=== PATIENT | male | born 1970 | race Caucasian/White ===

== ENCOUNTER 2018-02-05 09:09 | Inpatient (IN) | payer OTHER ==
[2018-02-05] MEDS ORDERED: HYDROmorphONE 1 MG/ML SYG IV (09:38)
[2018-02-05] MEDS: ONDANSETRON 4 MG INJ IV ×2 (10:09→21:36)
[2018-02-05] MEDS: SOD CHLORIDE 0.9% 1,000 ML IV ×4 (10:09→23:30)
[2018-02-05 10:13] LABS: ADD MAN DIFF? NO
[2018-02-05 10:15] LABS: BASOPHIL # 0.1 10^3/ul (0.0-0.1); BASOPHILS % 0.6 % (0.0-2.0); EOSINOPHILS # 0.1 10^3/ul (0.0-0.5); EOSINOPHILS % 0.8 % (0.0-7.0); LYMPHOCYTES # 1.1 10^3/ul (0.8-2.9); LYMPHOCYTES % 10.5 % (15.0-51.0); MEAN PLATELET VOLUME 9.4 fl (7.4-10.4); MONOCYTE # 0.5 10^3/ul (0.3-0.9); MONOCYTES % 4.7 % (0.0-11.0); NEUTROPHIL # 8.6 10^3/ul (1.6-7.5); PLATELET COUNT 157 10^3/UL (140-415); POSITIVE DIFF @See below; RED BLOOD COUNT 5.25 10^6/ul (4.70-6.10); RED CELL DISTRIBUTION WIDTH 12.6 % (11.5-14.5)
[2018-02-05 10:15] LABS: WHITE BLOOD COUNT 10.4 10^3/ul (4.8-10.8)
[2018-02-05 10:16] LABS: MEAN CORPUSCULAR HGB CONC 37.6 g/dl (32.0-37.0)
[2018-02-05 10:17] LABS: ADD UMIC NO; UR ASCORBIC ACID NEGATIVE (NEGATIVE); UR BILIRUBIN (Dip) NEGATIVE (NEGATIVE); UR BLOOD (Dip) NEGATIVE (NEGATIVE); UR CLARITY CLEAR (CLEAR); UR COLOR YELLOW (YELLOW); UR GLUCOSE (Dip) 3+ mg/dL (NEGATIVE); UR KETONES (Dip) TRACE mg/dL (NEGATIVE); UR LEUKOCYTE ESTERASE (Dip) NEGATIVE Leu/ul (NEGATIVE); UR NITRITE (Dip) NEGATIVE (NEGATIVE); UR SPECIFIC GRAVITY (Dip) 1.024 (1.003-1.030); UR TOTAL PROTEIN (Dip) NEGATIVE (NEGATIVE); UR UROBILINOGEN (Dip) NEGATIVE (NEGATIVE)
[2018-02-05 10:33] LABS: ALANINE AMINOTRANSFERASE 39 IU/L (13-69); ALBUMIN 3.9 g/dl (3.3-4.9); ALKALINE PHOSPHATASE 90 IU/L (42-121); ANION GAP 18 (8-16); ASPARTATE AMINO TRANSFERASE 20 IU/L (15-46); BILIRUBIN,INDIRECT 0.9 mg/dl (0-1.1); BILIRUBIN,TOTAL 0.9 mg/dl (0.2-1.3); BLOOD UREA NITROGEN 7 mg/dl (7-20); CALCIUM 8.5 mg/dl (8.4-10.2); CARBON DIOXIDE 20 mmol/L (21-31); CHLORIDE 95 mmol/L (97-110); CREATININE 0.91 mg/dl (0.61-1.24); GLUCOSE 364 mg/dl (70-220); POTASSIUM 4.3 mmol/L (3.5-5.1); SODIUM 129 mmol/L (135-144); TOTAL PROTEIN 8.2 g/dl (6.1-8.1)
[2018-02-05] MEDS: ERTAPENEM SODIUM 1 GM in SOD CHLORIDE 0.9% 100 ML IVPB (10:34)
[2018-02-05] MEDS: HYDROmorphONE 0.5 MG/0.5 ML SYG IV (10:46)
[2018-02-05] MEDS: IOHEXOL 300MG/ML 150 ML BTL (11:09)
[2018-02-05] MEDS: SOD CHLORIDE 0.9% 100 ML (11:09)
[2018-02-05 12:39] LABS: LIPASE 160 U/L (23-300)
[2018-02-05 12:56] LABS: HEMOGLOBIN 14.6 g/dl (14.0-18.0)
[2018-02-05 12:57] LABS: HEMATOCRIT 40.7 % (42.0-52.0); MEAN CORPUSCULAR HEMOGLOBIN 35.9 pg (29.0-33.0); MEAN CORPUSCULAR VOLUME 81.2 fl (82.0-101.0)
[2018-02-05] MEDS ORDERED: SOD CHLORIDE 0.9% 1,000 ML IV (13:57)
[2018-02-05] MEDS ORDERED: ACETAMINOPHEN 325 MG TAB PO (14:00)
[2018-02-05] MEDS ORDERED: ONDANSETRON 4 MG INJ IV (14:00)
[2018-02-05] MEDS ORDERED: HYDROCODONE/APAP (5/325) TAB PO (15:30)
[2018-02-05] MEDS ORDERED: NACL 0.9% 3 ML SYG IV (15:30)
[2018-02-05 16:14] LABS: HEMOGLOBIN A1C 9.5 % (0-5.9)
[2018-02-05] MEDS: morphine 2 MG INJ IV ×3 (16:38→22:52)
[2018-02-05 16:41] LABS: C-REACTIVE PROTEIN 18.7 mg/dl (0.0-0.9)
[2018-02-05 17:01] LABS: CANNABINOIDS Negative (NEGATIVE)
[2018-02-05 17:02] LABS: ERYTHROCYTE SEDIMENTATION RATE 1 mm/Hr (0-15)
[2018-02-05 17:04] LABS: AMPHETAMINE/METHAMPHETAMINE Negative (NEGATIVE); BARBITURATES Negative (NEGATIVE); BENZODIAZEPINES Negative (NEGATIVE); COCAINE Negative (NEGATIVE); OPIATES Negative (NEGATIVE)
[2018-02-05] MEDS: PANTOPRAZOLE 40 MG INJ IV (17:20)
[2018-02-05] MEDS ORDERED: GLUCAGON 1 MG INJ IM (17:30)
[2018-02-05] MEDS ORDERED: GLUCOSE GEL 15 GRAM TUBE PO ×2 (17:30)
[2018-02-05] MEDS ORDERED: GLUCOSE GEL 15 GRAM TUBE BUCCAL (17:30)
[2018-02-05] MEDS ORDERED: DEXTROSE 50% 50 ML SYRINGE IV ×2 (17:30)
[2018-02-05] MEDS ORDERED: DIPHENHYDRAMINE 50 MG INJ IV (18:00)
[2018-02-05] MEDS: FAMOTIDINE 20 MG INJ IV (18:03)
[2018-02-05] MEDS: DIPHENHYDRAMINE 50 MG INJ IV (18:03)
[2018-02-05 18:11] LABS: SODIUM,URINE RANDOM 24 mmol/L (30-90)
[2018-02-05 18:30] LABS: OSMOLALITY,URINE 338 mOsm/kg (250-1200)
[2018-02-05] MEDS: INSULIN ASPART [NOVOLOG] 3 ML PEN SC ×3 (18:30→21:26)
[2018-02-05 18:40] LABS: OSMOLALITY 277 mOsm/kg (280-295)
[2018-02-05] MEDS: INSULIN GLARGINE [LANtus] 3 ML PEN SC (21:16)
[2018-02-05] MEDS: CIPROFLOXACIN 400MG/D5W 200 ML IVPB (21:20)
[2018-02-05] MEDS: metroNIDAZOLE 500 MG/NS (PMX) 100 ML IVPB (22:04)
[2018-02-06] MEDS: ACCU-CHEK XX (02:08)
[2018-02-06] MEDS: metroNIDAZOLE 500 MG/NS (PMX) 100 ML IVPB ×3 (05:07→23:11)
[2018-02-06] MEDS: SOD CHLORIDE 0.9% 1,000 ML IV ×3 (05:08→23:30)
[2018-02-06] MEDS: PANTOPRAZOLE 40 MG INJ IV ×2 (05:08→17:14)
[2018-02-06 06:38] LABS: ADD MAN DIFF? NO
[2018-02-06 07:02] LABS: INR 1.19; PROTIME 15.3 Sec (11.9-14.9); PT RATIO 1.2
[2018-02-06 07:03] LABS: PARTIAL THROMBOPLASTIN TIME 37.9 Sec (25.0-35.0)
[2018-02-06 07:11] LABS: PHOSPHORUS 2.9 mg/dl (2.5-4.9)
[2018-02-06 07:11] LABS: CHOL/HDL RATIO 15.4 RATIO; CHOLESTEROL 278 mg/dl (100-200); HDL CHOLESTEROL 18 mg/dl (27-67); MAGNESIUM 1.8 mg/dl (1.7-2.5)
[2018-02-06 07:12] LABS: ALANINE AMINOTRANSFERASE 25 IU/L (13-69); ALBUMIN 3.4 g/dl (3.3-4.9); ALBUMIN/GLOBULIN RATIO 0.91; ALKALINE PHOSPHATASE 59 IU/L (42-121); AMYLASE 65 U/L (11-123); ANION GAP 17 (8-16); ASPARTATE AMINO TRANSFERASE 39 IU/L (15-46); BILIRUBIN,INDIRECT 0.7 mg/dl (0-1.1); BILIRUBIN,TOTAL 0.7 mg/dl (0.2-1.3); BLOOD UREA NITROGEN 5 mg/dl (7-20); CARBON DIOXIDE 22 mmol/L (21-31); CHLORIDE 102 mmol/L (97-110); CREATININE 0.86 mg/dl (0.61-1.24); GLUCOSE 177 mg/dl (70-220); LIPASE 90 U/L (23-300); POTASSIUM 4.6 mmol/L (3.5-5.1); SODIUM 136 mmol/L (135-144); TOTAL PROTEIN 7.1 g/dl (6.1-8.1)
[2018-02-06 07:42] LABS: TRIGLYCERIDES > 1575 mg/dl (0-149)
[2018-02-06] MEDS: INSULIN ASPART [NOVOLOG] 3 ML PEN SC ×7 (08:14→20:54)
[2018-02-06] MEDS: CIPROFLOXACIN 400MG/D5W 200 ML IVPB ×2 (08:40→20:58)
[2018-02-06] MEDS: morphine 2 MG INJ IV ×2 (08:55→20:47)
[2018-02-06 10:29] LABS: BASOPHILS % 0.5 % (0.0-2.0); EOSINOPHILS # 0.2 10^3/ul (0.0-0.5); EOSINOPHILS % 2.8 % (0.0-7.0); HEMATOCRIT 37.7 % (42.0-52.0); HEMOGLOBIN 13.3 g/dl (14.0-18.0); LYMPHOCYTES # 1.1 10^3/ul (0.8-2.9); LYMPHOCYTES % 17.6 % (15.0-51.0); MEAN CORPUSCULAR HGB CONC 35.3 g/dl (32.0-37.0); MEAN CORPUSCULAR VOLUME 85.1 fl (82.0-101.0); MEAN PLATELET VOLUME 11.1 fl (7.4-10.4); MONOCYTE # 0.4 10^3/ul (0.3-0.9); MONOCYTES % 6.4 % (0.0-11.0); NEUTROPHIL # 4.5 10^3/ul (1.6-7.5); NEUTROPHILS % 72.4 % (39.0-77.0); PLATELET COUNT 156 10^3/UL (140-415); POSITIVE DIFF @See below; RED BLOOD COUNT 4.43 10^6/ul (4.70-6.10); RED CELL DISTRIBUTION WIDTH 13.3 % (11.5-14.5)
[2018-02-06 10:29] LABS: WHITE BLOOD COUNT 6.1 10^3/ul (4.8-10.8)
[2018-02-06] MEDS: FENOFIBRATE 145 MG TAB PO (12:38)
[2018-02-06] MEDS: INSULIN GLARGINE [LANtus] 3 ML PEN SC (20:57)
[2018-02-06] MEDS: GEMFIBROZIL 600 MG TAB PO (20:58)
[2018-02-06] MEDS: ATORVASTATIN 40 MG TAB PO (20:58)
[2018-02-07] MEDS: ACCU-CHEK XX (01:56)
[2018-02-07] MEDS: SOD CHLORIDE 0.9% 1,000 ML IV (05:00)
[2018-02-07] MEDS: metroNIDAZOLE 500 MG/NS (PMX) 100 ML IVPB ×3 (05:01→23:14)
[2018-02-07] MEDS: PANTOPRAZOLE 40 MG INJ IV ×2 (05:01→17:17)
[2018-02-07] MEDS: morphine 2 MG INJ IV ×2 (07:08→20:18)
[2018-02-07 07:16] LABS: ADD MAN DIFF? NO
[2018-02-07 07:18] LABS: BASOPHILS % 0.3 % (0.0-2.0); EOSINOPHILS # 0.2 10^3/ul (0.0-0.5); EOSINOPHILS % 3.7 % (0.0-7.0); HEMATOCRIT 38.4 % (42.0-52.0); LYMPHOCYTES % 17.4 % (15.0-51.0); MEAN CORPUSCULAR HEMOGLOBIN 28.7 pg (29.0-33.0); MEAN CORPUSCULAR HGB CONC 33.9 g/dl (32.0-37.0); MEAN CORPUSCULAR VOLUME 84.8 fl (82.0-101.0); MEAN PLATELET VOLUME 9.6 fl (7.4-10.4); MONOCYTE # 0.5 10^3/ul (0.3-0.9); MONOCYTES % 8.8 % (0.0-11.0); NEUTROPHIL # 4.2 10^3/ul (1.6-7.5); NEUTROPHILS % 69.3 % (39.0-77.0); PLATELET COUNT 167 10^3/UL (140-415); RED BLOOD COUNT 4.53 10^6/ul (4.70-6.10); RED CELL DISTRIBUTION WIDTH 12.9 % (11.5-14.5)
[2018-02-07] MEDS: INSULIN ASPART [NOVOLOG] 3 ML PEN SC ×7 (07:35→20:40)
[2018-02-07 07:48] LABS: PHOSPHORUS 3.7 mg/dl (2.5-4.9)
[2018-02-07 07:48] LABS: ALANINE AMINOTRANSFERASE 31 IU/L (13-69); ALBUMIN 3.5 g/dl (3.3-4.9); ALBUMIN/GLOBULIN RATIO 1.02; ALKALINE PHOSPHATASE 77 IU/L (42-121); ANION GAP 15 (8-16); ASPARTATE AMINO TRANSFERASE 17 IU/L (15-46); BILIRUBIN,INDIRECT 0.6 mg/dl (0-1.1); BILIRUBIN,TOTAL 0.6 mg/dl (0.2-1.3); BLOOD UREA NITROGEN 5 mg/dl (7-20); CALCIUM 8.8 mg/dl (8.4-10.2); CARBON DIOXIDE 24 mmol/L (21-31); CHLORIDE 104 mmol/L (97-110); GLUCOSE 179 mg/dl (70-220); POTASSIUM 4.1 mmol/L (3.5-5.1); SODIUM 139 mmol/L (135-144); TOTAL PROTEIN 6.9 g/dl (6.1-8.1)
[2018-02-07] MEDS: GEMFIBROZIL 600 MG TAB PO ×2 (08:31→20:18)
[2018-02-07] MEDS: CIPROFLOXACIN 400MG/D5W 200 ML IVPB ×2 (08:32→20:23)
[2018-02-07] MEDS: LIDOCAINE 2% (SDV) 5 ML INJ (13:18)
[2018-02-07] MEDS: PROPOFOL 20 ML ×2 (13:18→13:26)
[2018-02-07] MEDS: MIDAZOLAM 1 MG/ML 2 ML INJ (13:18)
[2018-02-07] MEDS ORDERED: DIPHENHYDRAMINE 50 MG INJ IV (13:30)
[2018-02-07] MEDS ORDERED: HYDROmorphONE (0.2 MG/ML) 10ML SYG IV (13:30)
[2018-02-07] MEDS ORDERED: ONDANSETRON 4 MG INJ IV (13:30)
[2018-02-07] MEDS ORDERED: PROCHLORPERAZINE 10 MG INJ IV (13:30)
[2018-02-07] MEDS ORDERED: MEPERIDINE 25 MG INJ IV (13:30)
[2018-02-07] MEDS ORDERED: BISACODYL (EC) 5 MG TAB PO (16:30)
[2018-02-07] MEDS: metFORMIN 500 MG TAB PO (17:17)
[2018-02-07] MEDS: ATORVASTATIN 40 MG TAB PO (20:18)
[2018-02-07] MEDS: DOCUSATE SODIUM 100 MG CAP PO (20:29)
[2018-02-07] MEDS: POLYETHYLENE GLYCOL 17 GM PACKET PO (20:39)
[2018-02-07] MEDS: INSULIN GLARGINE [LANtus] 3 ML PEN SC (20:41)
[2018-02-08] MEDS: ACCU-CHEK XX (02:00)
[2018-02-08] MEDS: metroNIDAZOLE 500 MG/NS (PMX) 100 ML IVPB (05:43)
[2018-02-08] MEDS: PANTOPRAZOLE 40 MG INJ IV (05:43)
[2018-02-08 06:05] LABS: ADD MAN DIFF? NO
[2018-02-08 06:07] LABS: BASOPHILS % 0.5 % (0.0-2.0); EOSINOPHILS # 0.2 10^3/ul (0.0-0.5); EOSINOPHILS % 3.6 % (0.0-7.0); HEMATOCRIT 38.6 % (42.0-52.0); HEMOGLOBIN 13.5 g/dl (14.0-18.0); LYMPHOCYTES # 1.1 10^3/ul (0.8-2.9); LYMPHOCYTES % 18.7 % (15.0-51.0); MEAN CORPUSCULAR HEMOGLOBIN 29.3 pg (29.0-33.0); MEAN CORPUSCULAR VOLUME 83.7 fl (82.0-101.0); MEAN PLATELET VOLUME 9.5 fl (7.4-10.4); MONOCYTE # 0.6 10^3/ul (0.3-0.9); MONOCYTES % 9.6 % (0.0-11.0); NEUTROPHIL # 3.9 10^3/ul (1.6-7.5); NEUTROPHILS % 66.9 % (39.0-77.0); PLATELET COUNT 195 10^3/UL (140-415); RED BLOOD COUNT 4.61 10^6/ul (4.70-6.10); RED CELL DISTRIBUTION WIDTH 12.9 % (11.5-14.5)
[2018-02-08 06:07] LABS: WHITE BLOOD COUNT 5.8 10^3/ul (4.8-10.8)
[2018-02-08 07:12] LABS: PHOSPHORUS 4.3 mg/dl (2.5-4.9)
[2018-02-08 07:12] LABS: MAGNESIUM 1.8 mg/dl (1.7-2.5)
[2018-02-08 07:13] LABS: ALANINE AMINOTRANSFERASE 28 IU/L (13-69); ALBUMIN 3.6 g/dl (3.3-4.9); ALBUMIN/GLOBULIN RATIO 1.05; ALKALINE PHOSPHATASE 83 IU/L (42-121); ANION GAP 16 (8-16); ASPARTATE AMINO TRANSFERASE 20 IU/L (15-46); BILIRUBIN,INDIRECT 0.4 mg/dl (0-1.1); BILIRUBIN,TOTAL 0.4 mg/dl (0.2-1.3); BLOOD UREA NITROGEN 5 mg/dl (7-20); CALCIUM 9.1 mg/dl (8.4-10.2); CARBON DIOXIDE 24 mmol/L (21-31); CHLORIDE 103 mmol/L (97-110); GLUCOSE 181 mg/dl (70-220); POTASSIUM 3.9 mmol/L (3.5-5.1); SODIUM 139 mmol/L (135-144)
[2018-02-08] MEDS: metFORMIN 500 MG TAB PO (08:59)
[2018-02-08] MEDS: POLYETHYLENE GLYCOL 17 GM PACKET PO (09:00)
[2018-02-08] MEDS: DOCUSATE SODIUM 100 MG CAP PO (09:00)
[2018-02-08] MEDS: GEMFIBROZIL 600 MG TAB PO (09:00)
[2018-02-08] MEDS: INSULIN ASPART [NOVOLOG] 3 ML PEN SC ×4 (09:02→11:37)
[2018-02-08] MEDS: CIPROFLOXACIN 400MG/D5W 200 ML IVPB (09:17)
== END 2018-02-08 13:30 | disposition home or self-care (01) | DRG 392 ==
LOC: PP2 02-06 02:33 → FTE 09:09 → MS3 13:58
PROC: 0DB98ZX Excision of Duodenum, Via Natural or Artificial Opening Endoscopic, Diagnostic (ICD-10-PCS; principal; 2018-02-07 12:30)
PROC: 0DB78ZX Excision of Stomach, Pylorus, Via Natural or Artificial Opening Endoscopic, Diagnostic (ICD-10-PCS; 2018-02-07 12:30)
PROC: 0DB68ZX Excision of Stomach, Via Natural or Artificial Opening Endoscopic, Diagnostic (ICD-10-PCS; 2018-02-07 12:30)
DX: K29.70 Gastritis, unspecified, without bleeding (principal); E87.1 Hypo-osmolality and hyponatremia; E11.9 Type 2 diabetes mellitus without complications; E66.9 Obesity, unspecified; Z68.29 Body mass index [BMI] 29.0-29.9, adult; K44.9 Diaphragmatic hernia without obstruction or gangrene; E78.5 Hyperlipidemia, unspecified
CPT/HCPCS: 36415; 74177; 80053; 80061; 80307; 81003; 82150; 82962; 83036; 83690; 83735; 83930; 83935; 84100; 84300; 84439; 84443; 85025; 85610; 85651; 85730; 86140; 87040; 88305; 88312; 96374; 96375; 99217; 99285-25; G0378

== ENCOUNTER 2018-03-13 09:58 | Emergency (ER) | payer OTHER ==
[2018-03-13] MEDS: ONDANSETRON 4 MG INJ IV (10:44)
[2018-03-13] MEDS: SOD CHLORIDE 0.9% 1,000 ML IV (10:45)
[2018-03-13 11:02] LABS: ADD MAN DIFF? NO
[2018-03-13 11:07] LABS: WHITE BLOOD COUNT 4.2 10^3/ul (4.8-10.8)
[2018-03-13 11:07] LABS: BASOPHILS % 0.7 % (0.0-2.0); EOSINOPHILS % 0.5 % (0.0-7.0); HEMATOCRIT 41.2 % (42.0-52.0); LYMPHOCYTES # 1.6 10^3/ul (0.8-2.9); LYMPHOCYTES % 37.3 % (15.0-51.0); MEAN CORPUSCULAR HEMOGLOBIN 28.7 pg (29.0-33.0); MEAN CORPUSCULAR HGB CONC 36.4 g/dl (32.0-37.0); MEAN CORPUSCULAR VOLUME 78.9 fl (82.0-101.0); MEAN PLATELET VOLUME 8.6 fl (7.4-10.4); MONOCYTE # 0.4 10^3/ul (0.3-0.9); MONOCYTES % 8.5 % (0.0-11.0); NEUTROPHIL # 2.2 10^3/ul (1.6-7.5); NEUTROPHILS % 52.5 % (39.0-77.0); PLATELET COUNT 167 10^3/UL (140-415); RED BLOOD COUNT 5.22 10^6/ul (4.70-6.10); RED CELL DISTRIBUTION WIDTH 12.8 % (11.5-14.5)
[2018-03-13 11:10] LABS: ADD UMIC YES; UR ASCORBIC ACID NEGATIVE (NEGATIVE); UR BILIRUBIN (Dip) NEGATIVE (NEGATIVE); UR BLOOD (Dip) NEGATIVE (NEGATIVE); UR CLARITY CLEAR (CLEAR); UR COLOR YELLOW (YELLOW); UR GLUCOSE (Dip) 1+ mg/dL (NEGATIVE); UR KETONES (Dip) NEGATIVE (NEGATIVE); UR LEUKOCYTE ESTERASE (Dip) NEGATIVE Leu/ul (NEGATIVE); UR NITRITE (Dip) NEGATIVE (NEGATIVE); UR RBC 0 /HPF (0-5); UR SPECIFIC GRAVITY (Dip) 1.009 (1.003-1.030); UR TOTAL PROTEIN (Dip) 2+ mg/dl (NEGATIVE); UR UROBILINOGEN (Dip) NEGATIVE (NEGATIVE); UR WBC 0 /HPF (0-5)
[2018-03-13 11:32] LABS: ALANINE AMINOTRANSFERASE 48 IU/L (13-69); ALBUMIN 4.6 g/dl (3.3-4.9); ALBUMIN/GLOBULIN RATIO 1.12; ALKALINE PHOSPHATASE 98 IU/L (42-121); ANION GAP 22 (8-16); ASPARTATE AMINO TRANSFERASE 40 IU/L (15-46); BILIRUBIN,INDIRECT 0.8 mg/dl (0-1.1); BILIRUBIN,TOTAL 0.8 mg/dl (0.2-1.3); BLOOD UREA NITROGEN 6 mg/dl (7-20); CALCIUM 9.7 mg/dl (8.4-10.2); CARBON DIOXIDE 22 mmol/L (21-31); CHLORIDE 100 mmol/L (97-110); CREATININE 0.81 mg/dl (0.61-1.24); GLUCOSE 200 mg/dl (70-220); LIPASE 105 U/L (23-300); POTASSIUM 4.2 mmol/L (3.5-5.1); SODIUM 140 mmol/L (135-144); TOTAL PROTEIN 8.7 g/dl (6.1-8.1)
[2018-03-13 11:43] LABS: TROPONIN-I 0.013 ng/ml (0.00-0.12)
[2018-03-13] MEDS: ONDANSETRON (ODT) 4 MG TAB ODT (12:16)
[2018-03-13] MEDS: ACETAMINOPHEN 325 MG TAB PO (12:16)
== END 2018-03-13 12:17 | disposition home or self-care (01) ==
LOC: FTE 09:58
DX: R10.13 Epigastric pain (principal); E11.9 Type 2 diabetes mellitus without complications; R00.2 Palpitations
CPT/HCPCS: 36415; 76705; 80053; 81001; 83690; 84484; 85025; 93005; 96374; 99285-25

== ENCOUNTER 2018-05-20 21:44 | Inpatient (IN) | payer OTHER ==
[2018-05-20] MEDS: ONDANSETRON 4 MG INJ IV (22:59)
[2018-05-20] MEDS: morphine 4 MG/ML VIAL IV (22:59)
[2018-05-20] MEDS: SOD CHLORIDE 0.9% 1,000 ML IV (23:00)
[2018-05-20 23:12] LABS: ADD MAN DIFF? NO
[2018-05-20 23:16] LABS: WHITE BLOOD COUNT 10.6 10^3/ul (4.8-10.8)
[2018-05-20 23:16] LABS: BASOPHIL # 0.1 10^3/ul (0.0-0.1); BASOPHILS % 0.8 % (0.0-2.0); EOSINOPHILS % 0.2 % (0.0-7.0); LYMPHOCYTES # 1.4 10^3/ul (0.8-2.9); MONOCYTE # 0.4 10^3/ul (0.3-0.9); MONOCYTES % 3.7 % (0.0-11.0); NEUTROPHIL # 8.7 10^3/ul (1.6-7.5); PLATELET COUNT 322 10^3/UL (140-415); POSITIVE DIFF @See below; RED BLOOD COUNT 6.53 10^6/ul (4.70-6.10); RED CELL DISTRIBUTION WIDTH 13.2 % (11.5-14.5)
[2018-05-20 23:24] LABS: ADD UMIC YES; UR ASCORBIC ACID NEGATIVE (NEGATIVE); UR BILIRUBIN (Dip) 1+ mg/dL (NEGATIVE); UR BLOOD (Dip) NEGATIVE (NEGATIVE); UR CLARITY CLEAR (CLEAR); UR COLOR AMBER (YELLOW); UR GLUCOSE (Dip) 3+ mg/dL (NEGATIVE); UR KETONES (Dip) 1+ mg/dL (NEGATIVE); UR LEUKOCYTE ESTERASE (Dip) NEGATIVE Leu/ul (NEGATIVE); UR MUCUS MODERATE /HPF (NONE SEEN); UR NITRITE (Dip) NEGATIVE (NEGATIVE); UR RBC 1 /HPF (0-5); UR SPECIFIC GRAVITY (Dip) 1.031 (1.003-1.030); UR TOTAL PROTEIN (Dip) 3+ mg/dl (NEGATIVE); UR UROBILINOGEN (Dip) NEGATIVE (NEGATIVE); UR WBC 2 /HPF (0-5)
[2018-05-20 23:33] LABS: ALANINE AMINOTRANSFERASE 56 IU/L (13-69); ALBUMIN 3.7 g/dl (3.3-4.9); ALBUMIN/GLOBULIN RATIO 0.88; ALKALINE PHOSPHATASE 97 IU/L (42-121); ANION GAP 25 (8-16); ASPARTATE AMINO TRANSFERASE 34 IU/L (15-46); BILIRUBIN,INDIRECT 0.9 mg/dl (0-1.1); BILIRUBIN,TOTAL 0.9 mg/dl (0.2-1.3); BLOOD UREA NITROGEN 9 mg/dl (7-20); CALCIUM 6.5 mg/dl (8.4-10.2); CARBON DIOXIDE 18 mmol/L (21-31); CHLORIDE 93 mmol/L (97-110); GLUCOSE 368 mg/dl (70-220); LIPASE 1796 U/L (23-300); SODIUM 129 mmol/L (135-144); TOTAL PROTEIN 7.9 g/dl (6.1-8.1)
[2018-05-20 23:42] LABS: POTASSIUM 6.6 mmol/L (3.5-5.1)
[2018-05-21 00:11] LABS: HEMATOCRIT 50.6 % (42.0-52.0)
[2018-05-21 00:12] LABS: MEAN CORPUSCULAR HEMOGLOBIN 28.1 pg (29.0-33.0); MEAN CORPUSCULAR HGB CONC 33.8 g/dl (32.0-37.0)
[2018-05-21 00:15] LABS: HEMOGLOBIN 17.1 g/dl (14.0-18.0)
[2018-05-21] MEDS: morphine 4 MG/ML VIAL IV (01:06)
[2018-05-21] MEDS ORDERED: ALBUTEROL/IPRATROPIUM (NEB) 3 ML AMP HHN (02:00)
[2018-05-21] MEDS ORDERED: GLUCOSE GEL 15 GRAM TUBE BUCCAL (02:00)
[2018-05-21] MEDS ORDERED: NACL 0.9% 3 ML SYG IV (02:00)
[2018-05-21] MEDS ORDERED: GLUCAGON 1 MG INJ IM (02:00)
[2018-05-21] MEDS ORDERED: ONDANSETRON 4 MG INJ IV (02:00)
[2018-05-21] MEDS ORDERED: ACETAMINOPHEN 325 MG TAB PO (02:00)
[2018-05-21] MEDS ORDERED: DEXTROSE 50% 50 ML SYRINGE IV ×3 (02:00)
[2018-05-21] MEDS ORDERED: GLUCOSE GEL 15 GRAM TUBE PO ×2 (02:00)
[2018-05-21] MEDS: ACCU-CHEK XX (02:13)
[2018-05-21] MEDS: INSULIN REGULAR, HUMAN 100 UNIT/1 ML 3ML VIAL IVP (02:20)
[2018-05-21] MEDS: SOD CHLORIDE 0.9% 1,000 ML IV ×8 (02:21→21:31)
[2018-05-21] MEDS: morphine 2 MG INJ IV ×5 (03:39→21:27)
[2018-05-21] MEDS: INSULIN GLARGINE [LANtus] 3 ML PEN SC ×2 (04:06→20:23)
[2018-05-21] MEDS: PANTOPRAZOLE (EC) 40 MG TAB PO ×2 (06:00→17:00)
[2018-05-21 06:27] LABS: ADD MAN DIFF? NO
[2018-05-21 06:30] LABS: WHITE BLOOD COUNT 7.8 10^3/ul (4.8-10.8)
[2018-05-21 06:30] LABS: BASOPHIL # 0.1 10^3/ul (0.0-0.1); BASOPHILS % 0.6 % (0.0-2.0); EOSINOPHILS % 0.3 % (0.0-7.0); HEMATOCRIT 42.4 % (42.0-52.0); HEMOGLOBIN 15.9 g/dl (14.0-18.0); LYMPHOCYTES # 1.3 10^3/ul (0.8-2.9); LYMPHOCYTES % 16.9 % (15.0-51.0); MEAN CORPUSCULAR HEMOGLOBIN 30.8 pg (29.0-33.0); MEAN CORPUSCULAR HGB CONC 37.5 g/dl (32.0-37.0); MEAN CORPUSCULAR VOLUME 82.2 fl (82.0-101.0); MEAN PLATELET VOLUME 9.7 fl (7.4-10.4); MONOCYTE # 0.4 10^3/ul (0.3-0.9); MONOCYTES % 5.1 % (0.0-11.0); NEUTROPHILS % 76.8 % (39.0-77.0); PLATELET COUNT 212 10^3/UL (140-415); RED BLOOD COUNT 5.16 10^6/ul (4.70-6.10); RED CELL DISTRIBUTION WIDTH 13.2 % (11.5-14.5)
[2018-05-21 06:53] LABS: ALANINE AMINOTRANSFERASE 43 IU/L (13-69); ALBUMIN/GLOBULIN RATIO 1.03; ALKALINE PHOSPHATASE 56 IU/L (42-121); ANION GAP 14 (8-16); ASPARTATE AMINO TRANSFERASE 30 IU/L (15-46); BILIRUBIN,INDIRECT 0.7 mg/dl (0-1.1); BILIRUBIN,TOTAL 0.7 mg/dl (0.2-1.3); BLOOD UREA NITROGEN 12 mg/dl (7-20); CARBON DIOXIDE 17 mmol/L (21-31); CHLORIDE 104 mmol/L (97-110); CREATININE 1.36 mg/dl (0.61-1.24); GLUCOSE 299 mg/dl (70-220); HDL CHOLESTEROL 18 mg/dl (27-67); MAGNESIUM 1.2 mg/dl (1.7-2.5); PHOSPHORUS 1.8 mg/dl (2.5-4.9); SODIUM 129 mmol/L (135-144); TOTAL PROTEIN 5.9 g/dl (6.1-8.1)
[2018-05-21 07:18] LABS: HEMOGLOBIN A1C 8.8 % (0-5.9)
[2018-05-21 07:37] LABS: CHOL/HDL RATIO 27.2 RATIO; CHOLESTEROL 490 mg/dl (100-200)
[2018-05-21 07:38] LABS: TRIGLYCERIDES > 1575 mg/dl (0-149)
[2018-05-21 07:39] LABS: CALCIUM 5.2 mg/dl (8.4-10.2)
[2018-05-21] MEDS: GEMFIBROZIL 600 MG TAB PO ×2 (08:19→20:09)
[2018-05-21] MEDS: INSULIN ASPART [NOVOLOG] 3 ML PEN SC ×5 (08:20→20:24)
[2018-05-21] MEDS: HEPARIN 5,000 UNIT/0.5 ML VIAL SC ×2 (08:21→20:13)
[2018-05-21] MEDS: MAGNESIUM SULFATE 2 GM/50 ML 50 ML IVPB (09:15)
[2018-05-21 10:12] LABS: ADD UMIC YES; UR ASCORBIC ACID NEGATIVE (NEGATIVE); UR BILIRUBIN (Dip) NEGATIVE (NEGATIVE); UR BLOOD (Dip) NEGATIVE (NEGATIVE); UR CLARITY CLEAR (CLEAR); UR COLOR YELLOW (YELLOW); UR GLUCOSE (Dip) 3+ mg/dL (NEGATIVE); UR KETONES (Dip) NEGATIVE (NEGATIVE); UR LEUKOCYTE ESTERASE (Dip) NEGATIVE Leu/ul (NEGATIVE); UR NITRITE (Dip) NEGATIVE (NEGATIVE); UR RBC 0 /HPF (0-5); UR SPECIFIC GRAVITY (Dip) 1.016 (1.003-1.030); UR TOTAL PROTEIN (Dip) 1+ mg/dl (NEGATIVE); UR UROBILINOGEN (Dip) NEGATIVE (NEGATIVE); UR WBC 3 /HPF (0-5)
[2018-05-21 10:15] LABS: IONIZED CALCIUM 0.7 mmol/L (1.1-1.4)
[2018-05-21 10:18] LABS: ANION GAP 14 (8-16); BLOOD UREA NITROGEN 13 mg/dl (7-20); CARBON DIOXIDE 17 mmol/L (21-31); CHLORIDE 103 mmol/L (97-110); CREATININE 1.16 mg/dl (0.61-1.24); GLUCOSE 270 mg/dl (70-220); POTASSIUM 4.2 mmol/L (3.5-5.1); SODIUM 130 mmol/L (135-144)
[2018-05-21 10:19] LABS: CREATININE,URINE RANDOM 218.66 mg/dl (20-370)
[2018-05-21 10:21] LABS: SODIUM,URINE RANDOM < 13 mmol/L (30-90)
[2018-05-21] MEDS: SOD CHLORIDE 0.9% IVPB (11:40)
[2018-05-21] MEDS: SODIUM PHOSPHATE IVPB (11:40)
[2018-05-21] MEDS: FISH OIL 1,000 MG CAP PO ×2 (13:40→20:09)
[2018-05-21] MEDS: ATORVASTATIN 80 MG TAB PO (20:09)
[2018-05-21] MEDS: ACETAMINOPHEN 325 MG TAB PO (20:57)
[2018-05-21] MEDS ORDERED: ATORVASTATIN 40 MG TAB PO (21:00)
[2018-05-21] MEDS: DIPHENHYDRAMINE 50 MG INJ IV (22:58)
[2018-05-21] MEDS: METHYLPREDNISOLONE 125 MG INJ IV (22:59)
[2018-05-22] MEDS: INSULIN ASPART [NOVOLOG] 3 ML PEN SC ×6 (01:27→22:56)
[2018-05-22] MEDS: SOD CHLORIDE 0.9% 1,000 ML IV ×4 (02:00→15:27)
[2018-05-22] MEDS ORDERED: ACCU-CHEK XX (02:00)
[2018-05-22] MEDS: KETOROLAC 30 MG INJ IV (02:44)
[2018-05-22] MEDS: PANTOPRAZOLE (EC) 40 MG TAB PO ×2 (05:05→17:21)
[2018-05-22 08:18] LABS: ADD MAN DIFF? NO
[2018-05-22 08:24] LABS: WHITE BLOOD COUNT 5.5 10^3/ul (4.8-10.8)
[2018-05-22 08:24] LABS: ABNORMAL IP MESSAGE 1; BASOPHILS % 0.2 % (0.0-2.0); EOSINOPHILS % 0.2 % (0.0-7.0); HEMATOCRIT 37.9 % (42.0-52.0); HEMOGLOBIN 13.2 g/dl (14.0-18.0); LYMPHOCYTES # 0.4 10^3/ul (0.8-2.9); LYMPHOCYTES % 7.2 % (15.0-51.0); MEAN CORPUSCULAR HEMOGLOBIN 29.5 pg (29.0-33.0); MEAN CORPUSCULAR HGB CONC 34.8 g/dl (32.0-37.0); MEAN CORPUSCULAR VOLUME 84.6 fl (82.0-101.0); MEAN PLATELET VOLUME 9.6 fl (7.4-10.4); MONOCYTE # 0.3 10^3/ul (0.3-0.9); MONOCYTES % 4.7 % (0.0-11.0); NEUTROPHIL # 4.8 10^3/ul (1.6-7.5); NEUTROPHILS % 87.3 % (39.0-77.0); PLATELET COUNT 152 10^3/UL (140-415); POSITIVE DIFF @See below; RED BLOOD COUNT 4.48 10^6/ul (4.70-6.10); RED CELL DISTRIBUTION WIDTH 13.4 % (11.5-14.5)
[2018-05-22] MEDS: FISH OIL 1,000 MG CAP PO ×2 (08:36→22:21)
[2018-05-22] MEDS: GEMFIBROZIL 600 MG TAB PO (08:36)
[2018-05-22] MEDS: HEPARIN 5,000 UNIT/0.5 ML VIAL SC ×2 (08:40→22:33)
[2018-05-22 08:51] LABS: HEMOGLOBIN A1C 8.9 % (0-5.9)
[2018-05-22 08:57] LABS: ANION GAP 15 (8-16); BLOOD UREA NITROGEN 9 mg/dl (7-20); CARBON DIOXIDE 17 mmol/L (21-31); CHLORIDE 110 mmol/L (97-110); CREATININE 0.82 mg/dl (0.61-1.24); GLUCOSE 219 mg/dl (70-220); MAGNESIUM 2.1 mg/dl (1.7-2.5); PHOSPHORUS 2.3 mg/dl (2.5-4.9); POTASSIUM 4.5 mmol/L (3.5-5.1); SODIUM 137 mmol/L (135-144)
[2018-05-22 09:04] LABS: CALCIUM 5.9 mg/dl (8.4-10.2)
[2018-05-22] MEDS: FENOFIBRATE 145 MG TAB PO (10:41)
[2018-05-22 12:17] LABS: LIPASE 355 U/L (23-300)
[2018-05-22] MEDS: ACETAMINOPHEN 325 MG TAB PO (12:28)
[2018-05-22] MEDS: CALCIUM GLUCONATE 10% 1 GM in DEXTROSE 5% 100 ML IVPB (13:45)
[2018-05-22 14:56] LABS: TRIGLYCERIDES > 1575 mg/dl (0-149)
[2018-05-22 15:01] LABS: CREATININE, RANDOM URINE 238 mg/dL (20-370); MICROALBUMIN 15.6 mg/dL; MICROALBUMIN/CREATININE RATIO 66 (<30)
[2018-05-22] MEDS ORDERED: ATORVASTATIN 80 MG TAB PO (21:00)
[2018-05-22] MEDS: ATORVASTATIN 40 MG TAB PO (22:20)
[2018-05-22] MEDS: INSULIN GLARGINE [LANtus] 3 ML PEN SC (22:32)
[2018-05-23] MEDS: INSULIN ASPART [NOVOLOG] 3 ML PEN SC ×7 (01:00→23:51)
[2018-05-23] MEDS: SOD CHLORIDE 0.9% 1,000 ML IV ×3 (01:38→16:12)
[2018-05-23] MEDS: ACETAMINOPHEN 325 MG TAB PO ×2 (01:45→23:48)
[2018-05-23] MEDS: PANTOPRAZOLE (EC) 40 MG TAB PO ×2 (05:57→17:29)
[2018-05-23 06:22] LABS: ADD MAN DIFF? NO
[2018-05-23 06:33] LABS: WHITE BLOOD COUNT 4.5 10^3/ul (4.8-10.8)
[2018-05-23 06:33] LABS: BASOPHILS % 0.2 % (0.0-2.0); EOSINOPHILS # 0.1 10^3/ul (0.0-0.5); EOSINOPHILS % 2.2 % (0.0-7.0); HEMATOCRIT 33.6 % (42.0-52.0); HEMOGLOBIN 11.5 g/dl (14.0-18.0); LYMPHOCYTES % 22.5 % (15.0-51.0); MEAN CORPUSCULAR HEMOGLOBIN 29.1 pg (29.0-33.0); MEAN CORPUSCULAR HGB CONC 34.2 g/dl (32.0-37.0); MEAN CORPUSCULAR VOLUME 85.1 fl (82.0-101.0); MEAN PLATELET VOLUME 9.7 fl (7.4-10.4); MONOCYTE # 0.3 10^3/ul (0.3-0.9); MONOCYTES % 6.6 % (0.0-11.0); NEUTROPHIL # 3.1 10^3/ul (1.6-7.5); NEUTROPHILS % 68.1 % (39.0-77.0); PLATELET COUNT 155 10^3/UL (140-415); RED BLOOD COUNT 3.95 10^6/ul (4.70-6.10); RED CELL DISTRIBUTION WIDTH 13.8 % (11.5-14.5)
[2018-05-23 07:00] LABS: ANION GAP 14 (8-16); BLOOD UREA NITROGEN 6 mg/dl (7-20); CALCIUM 7.7 mg/dl (8.4-10.2); CARBON DIOXIDE 22 mmol/L (21-31); CHLORIDE 108 mmol/L (97-110); CREATININE 0.76 mg/dl (0.61-1.24); GLUCOSE 109 mg/dl (70-220); MAGNESIUM 1.9 mg/dl (1.7-2.5); PHOSPHORUS 2.1 mg/dl (2.5-4.9); POTASSIUM 3.6 mmol/L (3.5-5.1); SODIUM 140 mmol/L (135-144)
[2018-05-23 07:09] LABS: LIPASE 377 U/L (23-300)
[2018-05-23 08:29] LABS: TRIGLYCERIDES > 1050 mg/dl (0-149)
[2018-05-23] MEDS: FISH OIL 1,000 MG CAP PO ×2 (08:30→20:52)
[2018-05-23] MEDS: FENOFIBRATE 145 MG TAB PO (08:30)
[2018-05-23] MEDS: HEPARIN 5,000 UNIT/0.5 ML VIAL SC (08:36)
[2018-05-23] MEDS: NEUTRA-PHOS 250 MG PACKET PO (09:00)
[2018-05-23] MEDS: HYDROCODONE/APAP (5/325) TAB PO ×2 (12:57→21:04)
[2018-05-23] MEDS: THIAMINE 100 MG TAB PO (16:00)
[2018-05-23] MEDS: GEMFIBROZIL 600 MG TAB PO (17:29)
[2018-05-23] MEDS: ATORVASTATIN 80 MG TAB PO (20:52)
[2018-05-23] MEDS: INSULIN GLARGINE [LANtus] 3 ML PEN SC (20:55)
[2018-05-23] MEDS: NIACIN (ER) 500 MG TAB PO (23:47)
[2018-05-24] MEDS: INSULIN ASPART [NOVOLOG] 3 ML PEN SC ×5 (05:00→21:00)
[2018-05-24] MEDS: SOD CHLORIDE 0.9% 1,000 ML IV ×3 (05:05→17:15)
[2018-05-24] MEDS: PANTOPRAZOLE (EC) 40 MG TAB PO ×2 (05:05→17:15)
[2018-05-24] MEDS: HYDROCODONE/APAP (5/325) TAB PO ×2 (05:09→11:26)
[2018-05-24] MEDS: FISH OIL 1,000 MG CAP PO ×2 (08:10→21:33)
[2018-05-24] MEDS: GEMFIBROZIL 600 MG TAB PO ×2 (08:11→17:15)
[2018-05-24] MEDS: THIAMINE 100 MG TAB PO (08:11)
[2018-05-24 10:25] LABS: ANION GAP 18 (8-16); BLOOD UREA NITROGEN 6 mg/dl (7-20); CALCIUM 8.3 mg/dl (8.4-10.2); CARBON DIOXIDE 20 mmol/L (21-31); CHLORIDE 103 mmol/L (97-110); CREATININE 0.68 mg/dl (0.61-1.24); GLUCOSE 140 mg/dl (70-220); MAGNESIUM 1.5 mg/dl (1.7-2.5); POTASSIUM 3.7 mmol/L (3.5-5.1); SODIUM 137 mmol/L (135-144)
[2018-05-24 11:15] LABS: LIPASE 593 U/L (23-300)
[2018-05-24 11:53] LABS: TRIGLYCERIDES 1108 mg/dl (0-149)
[2018-05-24] MEDS: ACETAMINOPHEN 325 MG TAB PO (18:11)
[2018-05-24] MEDS: NIACIN (ER) 500 MG TAB PO (21:33)
[2018-05-24] MEDS: MAGNESIUM SULFATE 2 GM/50 ML 50 ML IVPB (21:33)
[2018-05-24] MEDS: ATORVASTATIN 80 MG TAB PO (21:33)
[2018-05-24] MEDS: INSULIN GLARGINE [LANtus] 3 ML PEN SC (21:43)
[2018-05-25] MEDS: DIPHENHYDRAMINE 50 MG INJ IV (00:44)
[2018-05-25] MEDS: SOD CHLORIDE 0.9% 1,000 ML IV ×5 (00:46→23:34)
[2018-05-25] MEDS: INSULIN ASPART [NOVOLOG] 3 ML PEN SC ×6 (01:00→20:47)
[2018-05-25] MEDS: PANTOPRAZOLE (EC) 40 MG TAB PO (05:18)
[2018-05-25 06:14] LABS: ADD MAN DIFF? NO
[2018-05-25 06:28] LABS: BASOPHILS % 0.3 % (0.0-2.0); EOSINOPHILS # 0.2 10^3/ul (0.0-0.5); EOSINOPHILS % 2.3 % (0.0-7.0); HEMATOCRIT 36.6 % (42.0-52.0); HEMOGLOBIN 12.5 g/dl (14.0-18.0); LYMPHOCYTES % 14.3 % (15.0-51.0); MEAN CORPUSCULAR HEMOGLOBIN 28.7 pg (29.0-33.0); MEAN CORPUSCULAR HGB CONC 34.2 g/dl (32.0-37.0); MEAN CORPUSCULAR VOLUME 84.1 fl (82.0-101.0); MEAN PLATELET VOLUME 9.2 fl (7.4-10.4); MONOCYTE # 0.7 10^3/ul (0.3-0.9); NEUTROPHIL # 4.8 10^3/ul (1.6-7.5); NEUTROPHILS % 72.5 % (39.0-77.0); PLATELET COUNT 178 10^3/UL (140-415); RED BLOOD COUNT 4.35 10^6/ul (4.70-6.10)
[2018-05-25 06:28] LABS: WHITE BLOOD COUNT 6.6 10^3/ul (4.8-10.8)
[2018-05-25 06:58] LABS: LIPASE 957 U/L (23-300)
[2018-05-25 07:03] LABS: ALANINE AMINOTRANSFERASE 30 IU/L (13-69); ALBUMIN 3.6 g/dl (3.3-4.9); ALBUMIN/GLOBULIN RATIO 1.12; ALKALINE PHOSPHATASE 84 IU/L (42-121); ANION GAP 17 (8-16); ASPARTATE AMINO TRANSFERASE 25 IU/L (15-46); BILIRUBIN,INDIRECT 0.7 mg/dl (0-1.1); BILIRUBIN,TOTAL 0.7 mg/dl (0.2-1.3); BLOOD UREA NITROGEN 5 mg/dl (7-20); CALCIUM 8.7 mg/dl (8.4-10.2); CARBON DIOXIDE 23 mmol/L (21-31); CHLORIDE 101 mmol/L (97-110); CREATININE 0.74 mg/dl (0.61-1.24); GLUCOSE 106 mg/dl (70-220); POTASSIUM 3.6 mmol/L (3.5-5.1); SODIUM 137 mmol/L (135-144); TOTAL PROTEIN 6.8 g/dl (6.1-8.1)
[2018-05-25 07:13] LABS: TRIGLYCERIDES 742 mg/dl (0-149)
[2018-05-25] MEDS: GEMFIBROZIL 600 MG TAB PO ×2 (08:39→17:48)
[2018-05-25] MEDS: FISH OIL 1,000 MG CAP PO ×2 (08:39→20:47)
[2018-05-25] MEDS: THIAMINE 100 MG TAB PO (08:40)
[2018-05-25] MEDS: AL HYDROX/MG HYDROX/SIMETH 30 ML CUP PO (13:35)
[2018-05-25] MEDS: HYDROCODONE/APAP (5/325) TAB PO ×2 (14:13→20:57)
[2018-05-25] MEDS: ATORVASTATIN 80 MG TAB PO (20:47)
[2018-05-25] MEDS: NIACIN (ER) 500 MG TAB PO (20:47)
[2018-05-25] MEDS: INSULIN GLARGINE [LANtus] 3 ML PEN SC (20:54)
[2018-05-26] MEDS: INSULIN ASPART [NOVOLOG] 3 ML PEN SC ×6 (01:00→21:00)
[2018-05-26] MEDS: SOD CHLORIDE 0.9% 1,000 ML IV ×4 (02:56→21:11)
[2018-05-26 07:16] LABS: ADD MAN DIFF? NO
[2018-05-26 07:18] LABS: BASOPHIL # 0.1 10^3/ul (0.0-0.1); BASOPHILS % 0.7 % (0.0-2.0); EOSINOPHILS # 0.3 10^3/ul (0.0-0.5); EOSINOPHILS % 3.3 % (0.0-7.0); HEMATOCRIT 37.4 % (42.0-52.0); HEMOGLOBIN 12.4 g/dl (14.0-18.0); LYMPHOCYTES % 13.5 % (15.0-51.0); MEAN CORPUSCULAR HEMOGLOBIN 28.4 pg (29.0-33.0); MEAN CORPUSCULAR HGB CONC 33.2 g/dl (32.0-37.0); MEAN CORPUSCULAR VOLUME 85.6 fl (82.0-101.0); MEAN PLATELET VOLUME 9.3 fl (7.4-10.4); MONOCYTE # 0.8 10^3/ul (0.3-0.9); MONOCYTES % 11.1 % (0.0-11.0); NEUTROPHIL # 5.3 10^3/ul (1.6-7.5); NEUTROPHILS % 70.5 % (39.0-77.0); PLATELET COUNT 234 10^3/UL (140-415); RED BLOOD COUNT 4.37 10^6/ul (4.70-6.10)
[2018-05-26 07:18] LABS: WHITE BLOOD COUNT 7.5 10^3/ul (4.8-10.8)
[2018-05-26 07:51] LABS: ALANINE AMINOTRANSFERASE 28 IU/L (13-69); ALBUMIN 3.6 g/dl (3.3-4.9); ALBUMIN/GLOBULIN RATIO 0.97; ALKALINE PHOSPHATASE 121 IU/L (42-121); ANION GAP 19 (8-16); ASPARTATE AMINO TRANSFERASE 30 IU/L (15-46); BILIRUBIN,INDIRECT 0.6 mg/dl (0-1.1); BILIRUBIN,TOTAL 0.6 mg/dl (0.2-1.3); BLOOD UREA NITROGEN 7 mg/dl (7-20); CALCIUM 8.9 mg/dl (8.4-10.2); CARBON DIOXIDE 16 mmol/L (21-31); CHLORIDE 107 mmol/L (97-110); CREATININE 0.66 mg/dl (0.61-1.24); GLUCOSE 138 mg/dl (70-220); LIPASE 693 U/L (23-300); POTASSIUM 3.7 mmol/L (3.5-5.1); SODIUM 138 mmol/L (135-144); TOTAL PROTEIN 7.3 g/dl (6.1-8.1)
[2018-05-26] MEDS: PANTOPRAZOLE (EC) 40 MG TAB PO (08:25)
[2018-05-26] MEDS: GEMFIBROZIL 600 MG TAB PO ×2 (08:26→17:53)
[2018-05-26] MEDS: THIAMINE 100 MG TAB PO (08:27)
[2018-05-26] MEDS: FISH OIL 1,000 MG CAP PO ×2 (08:27→21:10)
[2018-05-26] MEDS: ATORVASTATIN 80 MG TAB PO (21:09)
[2018-05-26] MEDS: NIACIN (ER) 500 MG TAB PO (21:09)
[2018-05-26] MEDS: INSULIN GLARGINE [LANtus] 3 ML PEN SC (21:11)
[2018-05-27] MEDS: INSULIN ASPART [NOVOLOG] 3 ML PEN SC ×6 (01:30→20:40)
[2018-05-27] MEDS: SOD CHLORIDE 0.9% 1,000 ML IV ×2 (05:26→13:58)
[2018-05-27 05:55] LABS: ADD MAN DIFF? NO
[2018-05-27 06:04] LABS: WHITE BLOOD COUNT 7.3 10^3/ul (4.8-10.8)
[2018-05-27 06:04] LABS: BASOPHILS % 0.6 % (0.0-2.0); EOSINOPHILS # 0.3 10^3/ul (0.0-0.5); EOSINOPHILS % 3.6 % (0.0-7.0); HEMATOCRIT 36.4 % (42.0-52.0); HEMOGLOBIN 12.3 g/dl (14.0-18.0); LYMPHOCYTES # 0.8 10^3/ul (0.8-2.9); LYMPHOCYTES % 10.6 % (15.0-51.0); MEAN CORPUSCULAR HEMOGLOBIN 28.3 pg (29.0-33.0); MEAN CORPUSCULAR HGB CONC 33.8 g/dl (32.0-37.0); MEAN CORPUSCULAR VOLUME 83.9 fl (82.0-101.0); MEAN PLATELET VOLUME 9.3 fl (7.4-10.4); MONOCYTE # 0.8 10^3/ul (0.3-0.9); MONOCYTES % 10.6 % (0.0-11.0); NEUTROPHIL # 5.4 10^3/ul (1.6-7.5); NEUTROPHILS % 73.9 % (39.0-77.0); PLATELET COUNT 256 10^3/UL (140-415); RED BLOOD COUNT 4.34 10^6/ul (4.70-6.10); RED CELL DISTRIBUTION WIDTH 12.7 % (11.5-14.5)
[2018-05-27 06:29] LABS: CHOL/HDL RATIO 12.7 RATIO; HDL CHOLESTEROL 23 mg/dl (27-67); LDL CHOLESTEROL,CALCULATED 182 mg/dl; TRIGLYCERIDES 445 mg/dl (0-149)
[2018-05-27 06:29] LABS: CHOLESTEROL 294 mg/dl (100-200)
[2018-05-27 06:31] LABS: MAGNESIUM 1.9 mg/dl (1.7-2.5)
[2018-05-27 06:31] LABS: PHOSPHORUS 3.4 mg/dl (2.5-4.9)
[2018-05-27 06:40] LABS: ALANINE AMINOTRANSFERASE 29 IU/L (13-69); ALBUMIN 3.7 g/dl (3.3-4.9); ALBUMIN/GLOBULIN RATIO 1.15; ALKALINE PHOSPHATASE 121 IU/L (42-121); AMYLASE 140 U/L (11-123); ANION GAP 18 (8-16); ASPARTATE AMINO TRANSFERASE 39 IU/L (15-46); BILIRUBIN,INDIRECT 0.3 mg/dl (0-1.1); BILIRUBIN,TOTAL 0.3 mg/dl (0.2-1.3); BLOOD UREA NITROGEN 5 mg/dl (7-20); CALCIUM 8.9 mg/dl (8.4-10.2); CARBON DIOXIDE 20 mmol/L (21-31); CHLORIDE 104 mmol/L (97-110); GLUCOSE 183 mg/dl (70-220); LIPASE 791 U/L (23-300); POTASSIUM 3.5 mmol/L (3.5-5.1); SODIUM 138 mmol/L (135-144); TOTAL PROTEIN 6.9 g/dl (6.1-8.1)
[2018-05-27] MEDS: PANTOPRAZOLE (EC) 40 MG TAB PO (08:07)
[2018-05-27] MEDS: GEMFIBROZIL 600 MG TAB PO ×2 (08:07→17:20)
[2018-05-27] MEDS: FISH OIL 1,000 MG CAP PO ×2 (08:08→20:35)
[2018-05-27] MEDS: THIAMINE 100 MG TAB PO (08:08)
[2018-05-27] MEDS ORDERED: NIACIN (SR) 250 MG CAP PO (09:00)
[2018-05-27] MEDS: ACCU-CHEK XX ×2 (12:06→18:13)
[2018-05-27] MEDS ORDERED: BARIUM SULF 2% 450 ML BTL (BERRY SMOOTHIE) PO (18:30)
[2018-05-27] MEDS: ATORVASTATIN 80 MG TAB PO (20:35)
[2018-05-27] MEDS: NIACIN (ER) 500 MG TAB PO (20:35)
[2018-05-27] MEDS: INSULIN GLARGINE [LANtus] 3 ML PEN SC (20:41)
[2018-05-28] MEDS: SOD CHLORIDE 0.9% 1,000 ML IV ×4 (01:07→22:49)
[2018-05-28 05:49] LABS: ADD MAN DIFF? NO
[2018-05-28 05:52] LABS: BASOPHILS % 0.5 % (0.0-2.0); EOSINOPHILS # 0.3 10^3/ul (0.0-0.5); EOSINOPHILS % 3.3 % (0.0-7.0); HEMATOCRIT 36.5 % (42.0-52.0); HEMOGLOBIN 12.4 g/dl (14.0-18.0); LYMPHOCYTES # 1.3 10^3/ul (0.8-2.9); MEAN CORPUSCULAR HEMOGLOBIN 28.5 pg (29.0-33.0); MEAN CORPUSCULAR VOLUME 83.9 fl (82.0-101.0); MEAN PLATELET VOLUME 9.1 fl (7.4-10.4); MONOCYTE # 0.6 10^3/ul (0.3-0.9); NEUTROPHIL # 5.8 10^3/ul (1.6-7.5); NEUTROPHILS % 72.6 % (39.0-77.0); PLATELET COUNT 265 10^3/UL (140-415); RED BLOOD COUNT 4.35 10^6/ul (4.70-6.10); RED CELL DISTRIBUTION WIDTH 12.4 % (11.5-14.5)
[2018-05-28 06:18] LABS: MAGNESIUM 1.9 mg/dl (1.7-2.5)
[2018-05-28 06:18] LABS: PHOSPHORUS 4.1 mg/dl (2.5-4.9)
[2018-05-28 07:02] LABS: ALANINE AMINOTRANSFERASE 45 IU/L (13-69); ALBUMIN 3.5 g/dl (3.3-4.9); ALKALINE PHOSPHATASE 129 IU/L (42-121); AMYLASE 130 U/L (11-123); ANION GAP 14 (8-16); ASPARTATE AMINO TRANSFERASE 62 IU/L (15-46); BILIRUBIN,INDIRECT 0.5 mg/dl (0-1.1); BILIRUBIN,TOTAL 0.5 mg/dl (0.2-1.3); BLOOD UREA NITROGEN 7 mg/dl (7-20); CALCIUM 8.8 mg/dl (8.4-10.2); CARBON DIOXIDE 24 mmol/L (21-31); CHLORIDE 108 mmol/L (97-110); CREATININE 0.83 mg/dl (0.61-1.24); GLUCOSE 142 mg/dl (70-220); LIPASE 728 U/L (23-300); SODIUM 142 mmol/L (135-144)
[2018-05-28] MEDS: INSULIN ASPART [NOVOLOG] 3 ML PEN SC ×4 (08:00→21:03)
[2018-05-28] MEDS: IOHEXOL 300MG/ML 150 ML BTL (08:21)
[2018-05-28] MEDS: SOD CHLORIDE 0.9% 100 ML (08:21)
[2018-05-28] MEDS: GEMFIBROZIL 600 MG TAB PO ×2 (08:36→17:35)
[2018-05-28] MEDS: PANTOPRAZOLE (EC) 40 MG TAB PO (08:37)
[2018-05-28] MEDS: THIAMINE 100 MG TAB PO (08:37)
[2018-05-28] MEDS: FISH OIL 1,000 MG CAP PO ×2 (08:37→20:39)
[2018-05-28] MEDS ORDERED: metFORMIN 500 MG TAB PO (17:50)
[2018-05-28] MEDS: NIACIN (ER) 500 MG TAB PO (20:39)
[2018-05-28] MEDS: ATORVASTATIN 80 MG TAB PO (20:39)
[2018-05-28] MEDS: INSULIN GLARGINE [LANtus] 3 ML PEN SC (21:04)
[2018-05-29] MEDS: SOD CHLORIDE 0.9% 1,000 ML IV (05:36)
[2018-05-29 06:15] LABS: ADD MAN DIFF? NO
[2018-05-29 06:21] LABS: WHITE BLOOD COUNT 6.4 10^3/ul (4.8-10.8)
[2018-05-29 06:21] LABS: BASOPHILS % 0.6 % (0.0-2.0); EOSINOPHILS # 0.2 10^3/ul (0.0-0.5); EOSINOPHILS % 3.6 % (0.0-7.0); HEMATOCRIT 36.2 % (42.0-52.0); HEMOGLOBIN 12.3 g/dl (14.0-18.0); LYMPHOCYTES # 0.9 10^3/ul (0.8-2.9); LYMPHOCYTES % 14.6 % (15.0-51.0); MEAN CORPUSCULAR HEMOGLOBIN 28.2 pg (29.0-33.0); MEAN PLATELET VOLUME 9.4 fl (7.4-10.4); MONOCYTE # 0.4 10^3/ul (0.3-0.9); MONOCYTES % 6.8 % (0.0-11.0); NEUTROPHIL # 4.7 10^3/ul (1.6-7.5); NEUTROPHILS % 73.9 % (39.0-77.0); PLATELET COUNT 282 10^3/UL (140-415); RED BLOOD COUNT 4.36 10^6/ul (4.70-6.10); RED CELL DISTRIBUTION WIDTH 12.4 % (11.5-14.5)
[2018-05-29 06:55] LABS: ALANINE AMINOTRANSFERASE 42 IU/L (13-69); ALBUMIN 3.6 g/dl (3.3-4.9); ALBUMIN/GLOBULIN RATIO 1.16; ALKALINE PHOSPHATASE 115 IU/L (42-121); AMYLASE 139 U/L (11-123); ANION GAP 15 (8-16); ASPARTATE AMINO TRANSFERASE 60 IU/L (15-46); BILIRUBIN,INDIRECT 0.4 mg/dl (0-1.1); BILIRUBIN,TOTAL 0.4 mg/dl (0.2-1.3); BLOOD UREA NITROGEN 6 mg/dl (7-20); CALCIUM 9.1 mg/dl (8.4-10.2); CARBON DIOXIDE 27 mmol/L (21-31); CHLORIDE 103 mmol/L (97-110); CREATININE 0.72 mg/dl (0.61-1.24); GLUCOSE 148 mg/dl (70-220); LIPASE 747 U/L (23-300); POTASSIUM 3.8 mmol/L (3.5-5.1); SODIUM 141 mmol/L (135-144); TOTAL PROTEIN 6.7 g/dl (6.1-8.1)
[2018-05-29 06:58] LABS: PHOSPHORUS 4.5 mg/dl (2.5-4.9)
[2018-05-29 06:58] LABS: MAGNESIUM 1.9 mg/dl (1.7-2.5)
[2018-05-29] MEDS: INSULIN ASPART [NOVOLOG] 3 ML PEN SC ×2 (07:44→11:52)
[2018-05-29] MEDS: FISH OIL 1,000 MG CAP PO (08:29)
[2018-05-29] MEDS: GEMFIBROZIL 600 MG TAB PO (08:29)
[2018-05-29] MEDS: PANTOPRAZOLE (EC) 40 MG TAB PO (08:29)
[2018-05-30] MEDS ORDERED: metFORMIN 500 MG TAB PO (17:50)
== END 2018-05-29 17:10 | disposition home or self-care (01) | DRG 438 ==
LOC: FTE 21:44 → MS2 05-26 14:40 → TEL 05-21 01:16
DX: K85.90 Acute pancreatitis without necrosis or infection, unspecified (principal); E11.10 Type 2 diabetes mellitus with ketoacidosis without coma; N17.9 Acute kidney failure, unspecified; E87.1 Hypo-osmolality and hyponatremia; E87.2 Acidosis; I10 Essential (primary) hypertension; E78.1 Pure hyperglyceridemia; K76.0 Fatty (change of) liver, not elsewhere classified; E87.5 Hyperkalemia; E83.42 Hypomagnesemia; F10.10 Alcohol abuse, uncomplicated
CPT/HCPCS: 36415; 74176; 74177; 74181; 80048; 80053; 80061; 81001; 81003; 82043; 82150; 82330; 82962; 83036; 83690; 83735; 84100; 84155; 84300; 84478; 85025; 96374; 96375; 96376; 99285-25

== ENCOUNTER 2018-07-24 12:56 | Emergency (ER) | payer OTHER ==
[2018-07-24 16:44] LABS: ADD MAN DIFF? NO
[2018-07-24 16:47] LABS: WHITE BLOOD COUNT 7.7 10^3/ul (4.8-10.8)
[2018-07-24 16:47] LABS: BASOPHIL # 0.1 10^3/ul (0.0-0.1); BASOPHILS % 0.7 % (0.0-2.0); EOSINOPHILS % 0.5 % (0.0-7.0); HEMATOCRIT 40.2 % (42.0-52.0); HEMOGLOBIN 14.4 g/dl (14.0-18.0); LYMPHOCYTES # 1.9 10^3/ul (0.8-2.9); LYMPHOCYTES % 25.3 % (15.0-51.0); MEAN CORPUSCULAR HEMOGLOBIN 29.2 pg (29.0-33.0); MEAN CORPUSCULAR HGB CONC 35.8 g/dl (32.0-37.0); MEAN CORPUSCULAR VOLUME 81.5 fl (82.0-101.0); MEAN PLATELET VOLUME 8.3 fl (7.4-10.4); MONOCYTE # 0.4 10^3/ul (0.3-0.9); MONOCYTES % 5.5 % (0.0-11.0); NEUTROPHIL # 5.2 10^3/ul (1.6-7.5); NEUTROPHILS % 67.9 % (39.0-77.0); PLATELET COUNT 306 10^3/UL (140-415); RED BLOOD COUNT 4.93 10^6/ul (4.70-6.10); RED CELL DISTRIBUTION WIDTH 12.1 % (11.5-14.5)
[2018-07-24] MEDS: FAMOTIDINE 20 MG TAB PO (16:47)
[2018-07-24] MEDS: ONDANSETRON 4 MG INJ IV (16:48)
[2018-07-24] MEDS: SOD CHLORIDE 0.9% 1,000 ML IV (16:48)
[2018-07-24] MEDS: BELLADONNA/PHENOBARBITAL TAB PO (16:48)
[2018-07-24] MEDS: LORAZEPAM 2 MG INJ IV (16:48)
[2018-07-24] MEDS: LIDOCAINE/MYLANTA 40 ML BTL PO (16:59)
[2018-07-24 17:09] LABS: ALANINE AMINOTRANSFERASE 63 IU/L (13-69); ALBUMIN 4.6 g/dl (3.3-4.9); ALBUMIN/GLOBULIN RATIO 1.24; ALKALINE PHOSPHATASE 86 IU/L (42-121); ANION GAP 16 (8-16); ASPARTATE AMINO TRANSFERASE 55 IU/L (15-46); BILIRUBIN,INDIRECT 0.5 mg/dl (0-1.1); BILIRUBIN,TOTAL 0.5 mg/dl (0.2-1.3); BLOOD UREA NITROGEN 9 mg/dl (7-20); CALCIUM 9.8 mg/dl (8.4-10.2); CARBON DIOXIDE 26 mmol/L (21-31); CHLORIDE 102 mmol/L (97-110); GLUCOSE 114 mg/dl (70-220); LIPASE 114 U/L (23-300); POTASSIUM 4.2 mmol/L (3.5-5.1); SODIUM 140 mmol/L (135-144); TOTAL PROTEIN 8.3 g/dl (6.1-8.1)
[2018-07-24 17:19] LABS: TROPONIN-I 0.025 ng/ml (0.000-0.120)
== END 2018-07-24 18:21 | disposition home or self-care (01) ==
LOC: E/R 12:56
DX: I10 Essential (primary) hypertension (principal); F10.20 Alcohol dependence, uncomplicated; E11.9 Type 2 diabetes mellitus without complications; Z79.4 Long term (current) use of insulin
CPT/HCPCS: 36415; 80053; 83690; 84484; 85025; 93005; 96361; 96374; 96375; 99284-25

== ENCOUNTER 2019-02-17 20:49 | Emergency (ER) | payer OTHER ==
[2019-02-17 21:45] LABS: MODE ROOM AIR; MetHgb Venous 0.2 %; Sample Type Blood venous; Site VENOUS LINE; Venous COHb 0.1 %; Venous Fraction OxyHgb 93.3 %; Venous Oxygen Sat 93.6 mmHG (55.0-75.0); Venous Total Hemglobin 15.2 g/dl
[2019-02-17] MEDS: SOD CHLORIDE 0.9% 960 ML IV (21:46)
[2019-02-17 21:56] LABS: ADD MAN DIFF? NO
[2019-02-17 22:01] LABS: EOSINOPHILS # 0.2 10^3/ul (0.0-0.5); EOSINOPHILS % 3.8 % (0.0-7.0); HEMATOCRIT 40.9 % (42.0-52.0); HEMOGLOBIN 14.5 g/dl (14.0-18.0); LYMPHOCYTES # 1.7 10^3/ul (0.8-2.9); LYMPHOCYTES % 44.1 % (15.0-51.0); MEAN CORPUSCULAR HEMOGLOBIN 28.9 pg (29.0-33.0); MEAN CORPUSCULAR HGB CONC 35.5 g/dl (32.0-37.0); MEAN CORPUSCULAR VOLUME 81.6 fl (82.0-101.0); MEAN PLATELET VOLUME 8.5 fl (7.4-10.4); MONOCYTE # 0.3 10^3/ul (0.3-0.9); MONOCYTES % 7.3 % (0.0-11.0); NEUTROPHIL # 1.7 10^3/ul (1.6-7.5); NEUTROPHILS % 43.5 % (39.0-77.0); PLATELET COUNT 263 10^3/UL (140-415); RED BLOOD COUNT 5.01 10^6/ul (4.70-6.10); RED CELL DISTRIBUTION WIDTH 12.7 % (11.5-14.5)
[2019-02-17 22:03] LABS: ADD UMIC NO; UR ASCORBIC ACID NEGATIVE (NEGATIVE); UR BILIRUBIN (Dip) NEGATIVE (NEGATIVE); UR BLOOD (Dip) NEGATIVE (NEGATIVE); UR CLARITY CLEAR (CLEAR); UR COLOR YELLOW (YELLOW); UR GLUCOSE (Dip) NEGATIVE (NEGATIVE); UR KETONES (Dip) NEGATIVE (NEGATIVE); UR LEUKOCYTE ESTERASE (Dip) NEGATIVE Leu/ul (NEGATIVE); UR NITRITE (Dip) NEGATIVE (NEGATIVE); UR SPECIFIC GRAVITY (Dip) 1.013 (1.003-1.030); UR TOTAL PROTEIN (Dip) NEGATIVE (NEGATIVE); UR UROBILINOGEN (Dip) NEGATIVE (NEGATIVE)
[2019-02-17 22:21] LABS: ALANINE AMINOTRANSFERASE 46 IU/L (13-69); ALBUMIN 4.6 g/dl (3.3-4.9); ALKALINE PHOSPHATASE 84 IU/L (42-121); ASPARTATE AMINO TRANSFERASE 53 IU/L (15-46); BILIRUBIN,INDIRECT 0.3 mg/dl (0-1.1); BILIRUBIN,TOTAL 0.3 mg/dl (0.2-1.3); LIPASE 86 U/L (23-300); TOTAL PROTEIN 8.2 g/dl (6.1-8.1)
[2019-02-17 22:23] LABS: ANION GAP 17 (5-13); BLOOD UREA NITROGEN 8 mg/dl (7-20); CALCIUM 9.7 mg/dl (8.4-10.2); CARBON DIOXIDE 23 mmol/L (21-31); CHLORIDE 102 mmol/L (97-110); CREATININE 0.72 mg/dl (0.61-1.24); Estimated GFR > 60 mL/min (>60); GLUCOSE 147 mg/dl (70-220); MAGNESIUM 1.7 mg/dl (1.7-2.5); PHOSPHORUS 4.6 mg/dl (2.5-4.9); POTASSIUM 4.2 mmol/L (3.5-5.1); SODIUM 142 mmol/L (135-144)
[2019-02-17 22:50] LABS: TROPONIN-I < 0.012 ng/ml (0.000-0.120)
[2019-02-17] MEDS: ONDANSETRON 4 MG INJ IV (23:16)
[2019-02-17] MEDS: LIDOCAINE/MYLANTA 40 ML BTL PO (23:49)
== END 2019-02-18 01:12 | disposition home or self-care (01) ==
LOC: E/R 02-18 01:12
DX: K29.70 Gastritis, unspecified, without bleeding (principal); I10 Essential (primary) hypertension; E11.9 Type 2 diabetes mellitus without complications
CPT/HCPCS: 36415; 70450; 71045; 80048; 80076; 81003; 82803; 82962; 83690; 83735; 84100; 84484; 85025; 93005; 96374; 99285-25

== ENCOUNTER 2019-03-21 03:57 | Emergency (ER) | payer OTHER ==
[2019-03-21 04:46] LABS: ADD MAN DIFF? NO
[2019-03-21 04:50] LABS: EOSINOPHILS # 0.1 10^3/ul (0.0-0.5); EOSINOPHILS % 1.7 % (0.0-7.0); HEMATOCRIT 40.9 % (42.0-52.0); HEMOGLOBIN 14.8 g/dl (14.0-18.0); LYMPHOCYTES # 1.7 10^3/ul (0.8-2.9); LYMPHOCYTES % 55.7 % (15.0-51.0); MEAN CORPUSCULAR HEMOGLOBIN 29.3 pg (29.0-33.0); MEAN CORPUSCULAR HGB CONC 36.2 g/dl (32.0-37.0); MEAN PLATELET VOLUME 8.4 fl (7.4-10.4); MONOCYTE # 0.2 10^3/ul (0.3-0.9); NEUTROPHILS % 33.6 % (39.0-77.0); PLATELET COUNT 175 10^3/UL (140-415); RED BLOOD COUNT 5.05 10^6/ul (4.70-6.10); RED CELL DISTRIBUTION WIDTH 12.2 % (11.5-14.5)
[2019-03-21 04:57] LABS: ADD UMIC NO; UR ASCORBIC ACID NEGATIVE (NEGATIVE); UR BILIRUBIN (Dip) NEGATIVE (NEGATIVE); UR BLOOD (Dip) NEGATIVE (NEGATIVE); UR CLARITY CLEAR (CLEAR); UR COLOR YELLOW (YELLOW); UR GLUCOSE (Dip) NEGATIVE (NEGATIVE); UR KETONES (Dip) TRACE mg/dL (NEGATIVE); UR LEUKOCYTE ESTERASE (Dip) NEGATIVE Leu/ul (NEGATIVE); UR NITRITE (Dip) NEGATIVE (NEGATIVE); UR SPECIFIC GRAVITY (Dip) 1.012 (1.003-1.030); UR TOTAL PROTEIN (Dip) NEGATIVE (NEGATIVE); UR UROBILINOGEN (Dip) NEGATIVE (NEGATIVE)
[2019-03-21] MEDS: LIDOCAINE/MYLANTA 40 ML BTL PO (05:05)
[2019-03-21] MEDS: ONDANSETRON 4 MG INJ IV (05:05)
[2019-03-21] MEDS: BELLADONNA/PHENOBARBITAL TAB PO (05:06)
[2019-03-21] MEDS: FENTAnyl 50 MCG/ML VIAL IV (05:06)
[2019-03-21] MEDS: FAMOTIDINE 20 MG INJ IV (05:06)
[2019-03-21] MEDS: SOD CHLORIDE 0.9% 1,000 ML IV (05:07)
[2019-03-21 05:08] LABS: ALANINE AMINOTRANSFERASE 43 IU/L (13-69); ALBUMIN 4.3 g/dl (3.3-4.9); ALBUMIN/GLOBULIN RATIO 1.04; ALKALINE PHOSPHATASE 99 IU/L (42-121); ANION GAP 16 (5-13); ASPARTATE AMINO TRANSFERASE 59 IU/L (15-46); BILIRUBIN,INDIRECT 0.6 mg/dl (0-1.1); BILIRUBIN,TOTAL 0.6 mg/dl (0.2-1.3); BLOOD UREA NITROGEN 7 mg/dl (7-20); CALCIUM 9.4 mg/dl (8.4-10.2); CARBON DIOXIDE 23 mmol/L (21-31); CHLORIDE 100 mmol/L (97-110); CREATININE 0.64 mg/dl (0.61-1.24); Estimated GFR > 60 mL/min (>60); GLUCOSE 153 mg/dl (70-220); LIPASE 125 U/L (23-300); SODIUM 139 mmol/L (135-144); TOTAL PROTEIN 8.4 g/dl (6.1-8.1)
== END 2019-03-21 06:03 | disposition home or self-care (01) ==
LOC: E/R 03:57
DX: K29.20 Alcoholic gastritis without bleeding (principal); E11.9 Type 2 diabetes mellitus without complications; F10.10 Alcohol abuse, uncomplicated
CPT/HCPCS: 36415; 71045; 80053; 81003; 83690; 85025; 93005; 96374; 96375; 99284-25

== ENCOUNTER 2019-05-21 14:37 | Inpatient (IN) | payer OTHER ==
[2019-05-21] MEDS ORDERED: D5W-0.45 NACL + KCL 20 MEQ 1,000 ML IV (16:06)
[2019-05-21] MEDS ORDERED: ACETAMINOPHEN 325 MG TAB PO (16:30)
[2019-05-21] MEDS ORDERED: NACL 0.9% 3 ML SYG IV (16:30)
[2019-05-21] MEDS: HYDROmorphONE 1 MG/ML SYG IV (16:31)
[2019-05-21] MEDS: SOD CHLORIDE 0.9% 1,000 ML IV ×2 (16:32→23:14)
[2019-05-21] MEDS: ONDANSETRON 4 MG INJ IV (18:47)
[2019-05-21] MEDS ORDERED: GLUCAGON 1 MG INJ IM (19:00)
[2019-05-21] MEDS ORDERED: GLUCOSE GEL 15 GRAM TUBE PO ×2 (19:00)
[2019-05-21] MEDS ORDERED: DEXTROSE 50% 50 ML SYRINGE IV ×2 (19:00)
[2019-05-21] MEDS ORDERED: GLUCOSE GEL 15 GRAM TUBE BUCCAL (19:00)
[2019-05-21] MEDS: ACETAMINOPHEN 650 MG SUPP PR (20:06)
[2019-05-21] MEDS: FAMOTIDINE 20 MG INJ IV (20:06)
[2019-05-21] MEDS: INSULIN ASPART [NOVOLOG] 3 ML PEN SC (20:20)
[2019-05-21] MEDS: KETOROLAC 30 MG INJ IV (23:15)
[2019-05-22] MEDS: SOD CHLORIDE 0.9% 1,000 ML IV ×6 (00:30→17:32)
[2019-05-22] MEDS: ACCU-CHEK XX ×9 (02:00→21:00)
[2019-05-22] MEDS ORDERED: ACCU-CHEK XX ×2 (02:00→12:00)
[2019-05-22] MEDS: ONDANSETRON 4 MG INJ IV (02:19)
[2019-05-22] MEDS: HYDROmorphONE 0.5 MG/0.5 ML SYG IV (02:20)
[2019-05-22] MEDS: HYDROmorphONE 1 MG/ML SYG IV ×7 (05:33→20:46)
[2019-05-22 05:36] LABS: HEMATOCRIT 48.8 % (42.0-52.0); MEAN CORPUSCULAR HEMOGLOBIN 28.5 pg (29.0-33.0); MEAN CORPUSCULAR HGB CONC 34.8 g/dl (32.0-37.0); MEAN CORPUSCULAR VOLUME 81.9 fl (82.0-101.0); MEAN PLATELET VOLUME 9.5 fl (7.4-10.4); PLATELET COUNT 262 10^3/UL (140-415); POSITIVE DIFF @See below; RED BLOOD COUNT 5.96 10^6/ul (4.70-6.10); RED CELL DISTRIBUTION WIDTH 12.6 % (11.5-14.5)
[2019-05-22 05:36] LABS: WHITE BLOOD COUNT 10.6 10^3/ul (4.8-10.8)
[2019-05-22 05:49] LABS: ADD MAN DIFF? YES
[2019-05-22 07:20] LABS: ANISOCYTOSIS 1+ (0-0); BAND NEUTROPHILS #M 5.7 10^3/ul (0.0-0.6); BAND NEUTROPHILS % (M) 54 % (0-4); BASOPHIL #M 0.1 10^3/ul (0.0-0.0); BASOPHILS % (M) 1 % (0-2); LYMPHOCYTES #M 1.6 10^3/ul (0.8-2.9); LYMPHOCYTES % (M) 16 % (15-51); MICROCYTOSIS 1+ (0-0); MONOCYTE #M 0.3 10^3/ul (0.3-0.9); MONOCYTES % (M) 3 % (0-11); PLATELET ESTIMATE NORMAL; REACTIVE LYMPHOCYTES #M 0.1 10^3/ul (0.0-0.0); REACTIVE LYMPHOCYTES% (M) 1 % (0-0); SEG NEUT #M 3.3 10^3/ul (1.6-7.5); SEGMENTED NEUTROPHILS (M) % 25 % (39-77); SMUDGE%M 9 % (0-0); SPHEROCYTES 1+ (0-0)
[2019-05-22 07:30] LABS: HEMOGLOBIN A1C 6.6 % (0-5.9)
[2019-05-22] MEDS: INSULIN ASPART [NOVOLOG] 3 ML PEN SC ×4 (08:00→12:13)
[2019-05-22] MEDS: INSULIN GLARGINE [LANTus] (100 UNITS/ML) SYG SC ×2 (08:01→23:50)
[2019-05-22] MEDS: FAMOTIDINE 20 MG INJ IV ×2 (08:21→22:14)
[2019-05-22] MEDS ORDERED: INSULIN LISPRO 100 UNIT/ML VIAL SC ×2 (09:00→11:41)
[2019-05-22 10:10] LABS: CHOL/HDL RATIO 16.1 RATIO; CHOLESTEROL 307 mg/dl (100-200); HDL CHOLESTEROL 19 mg/dl (27-67)
[2019-05-22 10:49] LABS: TRIGLYCERIDES > 1575 mg/dl (0-149)
[2019-05-22 11:01] LABS: ALANINE AMINOTRANSFERASE 20 IU/L (13-69); ALBUMIN 3.4 g/dl (3.3-4.9); ALBUMIN/GLOBULIN RATIO 1.17; ALKALINE PHOSPHATASE 38 IU/L (42-121); ANION GAP 12 (5-13); ASPARTATE AMINO TRANSFERASE 54 IU/L (15-46); BLOOD UREA NITROGEN 21 mg/dl (7-20); CARBON DIOXIDE 13 mmol/L (21-31); CHLORIDE 109 mmol/L (97-110); CREATININE 2.84 mg/dl (0.61-1.24); Estimated GFR 24 mL/min (>60); GLUCOSE 295 mg/dl (70-220); MAGNESIUM 1.3 mg/dl (1.7-2.5); PHOSPHORUS 1.7 mg/dl (2.5-4.9); SODIUM 134 mmol/L (135-144); TOTAL PROTEIN 6.3 g/dl (6.1-8.1)
[2019-05-22 11:08] LABS: POTASSIUM 7.5 mmol/L (3.5-5.1)
[2019-05-22 11:10] LABS: CALCIUM 4.8 mg/dl (8.4-10.2)
[2019-05-22 11:11] LABS: LIPASE 7798 U/L (23-300)
[2019-05-22 11:18] LABS: FREE THYROXINE INDEX (Calc) 1.89 ug/ml (0.65-3.89); T3 UPTAKE 35.7 % (23.5-40.5); T4 (THYROXINE) 5.3 ug/dl (5.5-11.0)
[2019-05-22] MEDS: ALBUTEROL 0.083% (NEB) 2.5 MG/3 ML AMP HHN (12:04)
[2019-05-22] MEDS: CALCIUM GLUCONATE 10% 2 GM in DEXTROSE 5% 100 ML IVPB (12:04)
[2019-05-22] MEDS: ALBUTEROL/IPRATROPIUM (NEB) 3 ML AMP HHN (12:05)
[2019-05-22 12:48] LABS: UR GRANULAR CAST FEW /HPF (NONE SEEN); UR HYALINE CAST FEW /HPF (NONE SEEN); UR MUCUS FEW /HPF (NONE SEEN); UR RBC 1 /HPF (0-5); UR WBC 8 /HPF (0-5)
[2019-05-22 12:52] LABS: ADD UMIC YES; UR ASCORBIC ACID NEGATIVE (NEGATIVE); UR BILIRUBIN (Dip) NEGATIVE (NEGATIVE); UR BLOOD (Dip) 1+ mg/dL (NEGATIVE); UR CLARITY CLOUDY (CLEAR); UR COLOR AMBER (YELLOW); UR GLUCOSE (Dip) 1+ mg/dL (NEGATIVE); UR KETONES (Dip) NEGATIVE (NEGATIVE); UR LEUKOCYTE ESTERASE (Dip) NEGATIVE Leu/ul (NEGATIVE); UR NITRITE (Dip) NEGATIVE (NEGATIVE); UR SPECIFIC GRAVITY (Dip) 1.021 (1.003-1.030); UR TOTAL PROTEIN (Dip) 2+ mg/dl (NEGATIVE); UR UROBILINOGEN (Dip) NEGATIVE (NEGATIVE)
[2019-05-22] MEDS ORDERED: CALCIUM GLUCONATE 10% 2 GM in DEXTROSE 5% 100 ML IVPB (13:00)
[2019-05-22] MEDS: MAGNESIUM SULFATE 3 GM in DEXTROSE 5% 100 ML IVPB (13:34)
[2019-05-22] MEDS: SODIUM PHOSPHATE 20 MEQ in SOD CHLORIDE 0.9% 250 ML IVPB (13:34)
[2019-05-22 14:57] LABS: ANION GAP 11 (5-13); BLOOD UREA NITROGEN 26 mg/dl (7-20); CARBON DIOXIDE 13 mmol/L (21-31); CHLORIDE 108 mmol/L (97-110); CREATININE 3.34 mg/dl (0.61-1.24); Estimated GFR 20 mL/min (>60); GLUCOSE 232 mg/dl (70-220); SODIUM 132 mmol/L (135-144)
[2019-05-22 15:08] LABS: POTASSIUM 6.6 mmol/L (3.5-5.1)
[2019-05-22 15:09] LABS: CALCIUM 5.1 mg/dl (8.4-10.2)
[2019-05-22] MEDS ORDERED: DEXTROSE 50% 50 ML SYRINGE IV ×4 (16:00→18:00)
[2019-05-22 16:17] LABS: MAGNESIUM 1.3 mg/dl (1.7-2.5)
[2019-05-22] MEDS: SODIUM POLYSTYRENE 15 GM KIT (POWDER + SORBITOL) PO (16:28)
[2019-05-22] MEDS ORDERED: INSULIN REGULAR, HUMAN 100 UNIT in SOD CHLORIDE 0.9% 100 ML IV ×2 (16:30→18:00)
[2019-05-22] MEDS ORDERED: SOD CHLORIDE 0.9% 1,000 ML IV (17:51)
[2019-05-22] MEDS ORDERED: D10/0.45% NACL + KCL 40 MEQ 1,000 ML IV (17:51)
[2019-05-22] MEDS ORDERED: NS + KCL 30 MEQ 1,000 ML IV (17:51)
[2019-05-22] MEDS ORDERED: NS + KCL 40 MEQ 1,000 ML IV (17:51)
[2019-05-22] MEDS ORDERED: DEXTROSE 10%/0.45% NACL 1,000 ML IV (17:51)
[2019-05-22 17:56] LABS: ANION GAP 11 (5-13); BLOOD UREA NITROGEN 30 mg/dl (7-20); CARBON DIOXIDE 18 mmol/L (21-31); CHLORIDE 106 mmol/L (97-110); CREATININE 3.31 mg/dl (0.61-1.24); Estimated GFR 20 mL/min (>60); GLUCOSE 208 mg/dl (70-220); POTASSIUM 5.9 mmol/L (3.5-5.1); SODIUM 135 mmol/L (135-144)
[2019-05-22 17:56] LABS: LACTIC ACID 3.9 mmol/L (0.5-2.0)
[2019-05-22 17:58] LABS: CALCIUM 4.9 mg/dl (8.4-10.2)
[2019-05-22 18:01] LABS: AADO2 Arterial 50.5 mmHg (7.0-24.0); Allen Test ACCEPTAB; Arterial Base Excess -10.4 mmol/L (-3.0-3); Arterial Blood Gas Oxygen Sat 92.4 mmHG (95.0-98.0); Arterial Fraction of Oxyhgb 91.3 % (93.0-99.0); Arterial HCO3 14.5 mmol/L (22.0-26.0); Arterial MetHb 0.2 % (0.0-1.5); Arterial pCO2 30.2 mmhg (35-45); MODE ROOM AIR; Site Right Radial
[2019-05-22 20:23] LABS: SODIUM,URINE RANDOM 28 mmol/L (30-90)
[2019-05-22 20:23] LABS: CREATININE,URINE RANDOM 252.13 mg/dl (20-370)
[2019-05-22] MEDS: CALCIUM GLUCONATE 10% 1 GM in DEXTROSE 5% 100 ML IVPB (20:30)
[2019-05-22 21:06] LABS: ALANINE AMINOTRANSFERASE 12 IU/L (13-69); ALBUMIN 3.3 g/dl (3.3-4.9); ALBUMIN/GLOBULIN RATIO 1.03; ALKALINE PHOSPHATASE 33 IU/L (42-121); ANION GAP 11 (5-13); ASPARTATE AMINO TRANSFERASE 51 IU/L (15-46); BILIRUBIN,INDIRECT 0.8 mg/dl (0-1.1); BILIRUBIN,TOTAL 0.8 mg/dl (0.2-1.3); BLOOD UREA NITROGEN 29 mg/dl (7-20); CARBON DIOXIDE 14 mmol/L (21-31); CHLORIDE 108 mmol/L (97-110); CREATININE 3.53 mg/dl (0.61-1.24); Estimated GFR 19 mL/min (>60); GLUCOSE 112 mg/dl (70-220); POTASSIUM 5.3 mmol/L (3.5-5.1); SODIUM 133 mmol/L (135-144); TOTAL PROTEIN 6.5 g/dl (6.1-8.1)
[2019-05-22 21:12] LABS: CALCIUM 4.6 mg/dl (8.4-10.2)
[2019-05-22 21:31] LABS: IONIZED CALCIUM 0.7 mmol/L (1.1-1.4)
[2019-05-22] MEDS: METHADONE (1 MG/ML 5 ML PO UD SYG) PO (22:16)
[2019-05-22 22:47] LABS: ACETONE NEGATIVE (NEGATIVE)
[2019-05-22 23:52] LABS: HEMATOCRIT 34.5 % (42.0-52.0); HEMOGLOBIN 11.9 g/dl (14.0-18.0); MEAN CORPUSCULAR HEMOGLOBIN 28.5 pg (29.0-33.0); MEAN CORPUSCULAR HGB CONC 34.5 g/dl (32.0-37.0); MEAN CORPUSCULAR VOLUME 82.7 fl (82.0-101.0); MEAN PLATELET VOLUME 9.4 fl (7.4-10.4); PLATELET COUNT 162 10^3/UL (140-415); POSITIVE DIFF @See below; RED BLOOD COUNT 4.17 10^6/ul (4.70-6.10); RED CELL DISTRIBUTION WIDTH 13.2 % (11.5-14.5)
[2019-05-22 23:52] LABS: WHITE BLOOD COUNT 5.8 10^3/ul (4.8-10.8)
[2019-05-23] LABS: ADD MAN DIFF? YES
[2019-05-23 00:13] LABS: ALANINE AMINOTRANSFERASE 18 IU/L (13-69); ALKALINE PHOSPHATASE 32 IU/L (42-121); ANION GAP 7 (5-13); ASPARTATE AMINO TRANSFERASE 48 IU/L (15-46); BILIRUBIN,INDIRECT 0.9 mg/dl (0-1.1); BILIRUBIN,TOTAL 0.9 mg/dl (0.2-1.3); BLOOD UREA NITROGEN 31 mg/dl (7-20); CARBON DIOXIDE 16 mmol/L (21-31); CHLORIDE 106 mmol/L (97-110); CREATININE 3.36 mg/dl (0.61-1.24); Estimated GFR 20 mL/min (>60); GLUCOSE 158 mg/dl (70-220); MAGNESIUM 1.4 mg/dl (1.7-2.5); PHOSPHORUS 3.1 mg/dl (2.5-4.9); POTASSIUM 4.5 mmol/L (3.5-5.1); SODIUM 129 mmol/L (135-144)
[2019-05-23 00:16] LABS: CALCIUM 4.5 mg/dl (8.4-10.2)
[2019-05-23 00:34] LABS: ACETONE NEGATIVE (NEGATIVE)
[2019-05-23] MEDS: METHADONE (1 MG/ML 5 ML PO UD SYG) PO ×5 (01:11→18:55)
[2019-05-23] MEDS: HYDROmorphONE 1 MG/ML SYG IV ×6 (01:19→21:19)
[2019-05-23] MEDS: CALCIUM GLUCONATE 10% 2 GM in DEXTROSE 5% 100 ML IVPB ×3 (01:37→21:20)
[2019-05-23] MEDS: D10/0.45% NACL + KCL 30 MEQ 1,000 ML IV (01:37)
[2019-05-23 02:14] LABS: BAND NEUTROPHILS #M 1.7 10^3/ul (0.0-0.6); BAND NEUTROPHILS % (M) 31 % (0-4); SEGMENTED NEUTROPHILS (M) % 39 % (39-77)
[2019-05-23 02:15] LABS: ANISOCYTOSIS 1+ (0-0); BASOPHILS % (M) 1 % (0-2); EOSINOPHILS % (M) 1 % (0-7); LYMPHOCYTES #M 1.5 10^3/ul (0.8-2.9); LYMPHOCYTES % (M) 27 % (15-51); MICROCYTOSIS 1+ (0-0); MONOCYTES % (M) 1 % (0-11); PLATELET ESTIMATE NORMAL; POIKILOCYTOSIS 1+ (0-0); POLYCHROMASIA 2+ (0-0); SEG NEUT #M 2.4 10^3/ul (1.6-7.5); SMUDGE%M 16 % (0-0)
[2019-05-23] MEDS: SOD CHLORIDE 0.9% 1,000 ML IV ×2 (02:58→13:08)
[2019-05-23] MEDS ORDERED: DEXTROSE 50% 50 ML SYRINGE IV ×4 (03:00→13:00)
[2019-05-23] MEDS: ACCU-CHEK XX ×9 (03:00→11:00)
[2019-05-23 04:50] LABS: ADD MAN DIFF? NO
[2019-05-23 05:00] LABS: BASOPHILS % 0.7 % (0.0-2.0); EOSINOPHILS % 0.7 % (0.0-7.0); HEMATOCRIT 36.7 % (42.0-52.0); HEMOGLOBIN 12.5 g/dl (14.0-18.0); LYMPHOCYTES # 1.6 10^3/ul (0.8-2.9); LYMPHOCYTES % 26.3 % (15.0-51.0); MEAN CORPUSCULAR HEMOGLOBIN 28.7 pg (29.0-33.0); MEAN CORPUSCULAR HGB CONC 34.1 g/dl (32.0-37.0); MEAN CORPUSCULAR VOLUME 84.2 fl (82.0-101.0); MEAN PLATELET VOLUME 9.8 fl (7.4-10.4); MONOCYTE # 0.3 10^3/ul (0.3-0.9); MONOCYTES % 4.6 % (0.0-11.0); NEUTROPHIL # 4.1 10^3/ul (1.6-7.5); NEUTROPHILS % 67.2 % (39.0-77.0); PLATELET COUNT 193 10^3/UL (140-415); POSITIVE DIFF @See below; RED BLOOD COUNT 4.36 10^6/ul (4.70-6.10); RED CELL DISTRIBUTION WIDTH 13.3 % (11.5-14.5)
[2019-05-23 05:00] LABS: WHITE BLOOD COUNT 6.1 10^3/ul (4.8-10.8)
[2019-05-23] MEDS: INSULIN HUMAN REGULAR 100 UNIT in SOD CHLORIDE 0.9% 99 ML IV ×2 (05:05→11:04)
[2019-05-23] MEDS: ONDANSETRON 4 MG INJ IV ×2 (05:13→17:41)
[2019-05-23 06:12] LABS: ALANINE AMINOTRANSFERASE 12 IU/L (13-69); ALBUMIN 3.2 g/dl (3.3-4.9); ALBUMIN/GLOBULIN RATIO 1.03; ALKALINE PHOSPHATASE 31 IU/L (42-121); ANION GAP 11 (5-13); ASPARTATE AMINO TRANSFERASE 59 IU/L (15-46); BILIRUBIN,INDIRECT 1.1 mg/dl (0-1.1); BILIRUBIN,TOTAL 1.1 mg/dl (0.2-1.3); BLOOD UREA NITROGEN 33 mg/dl (7-20); CARBON DIOXIDE 18 mmol/L (21-31); CHLORIDE 105 mmol/L (97-110); CREATININE 3.59 mg/dl (0.61-1.24); Estimated GFR 18 mL/min (>60); GLUCOSE 81 mg/dl (70-220); MAGNESIUM 1.4 mg/dl (1.7-2.5); PHOSPHORUS 3.3 mg/dl (2.5-4.9); POTASSIUM 4.8 mmol/L (3.5-5.1); SODIUM 134 mmol/L (135-144); TOTAL PROTEIN 6.3 g/dl (6.1-8.1)
[2019-05-23 06:23] LABS: LIPASE 3693 U/L (23-300)
[2019-05-23 06:28] LABS: CALCIUM 4.6 mg/dl (8.4-10.2)
[2019-05-23 06:47] LABS: ACETONE NEGATIVE (NEGATIVE)
[2019-05-23] MEDS ORDERED: INSULIN GLARGINE [LANTus] (100 UNITS/ML) SYG SC (08:00)
[2019-05-23 08:17] LABS: ANISOCYTOSIS 1+ (0-0); BAND NEUTROPHILS #M 1.1 10^3/ul (0.0-0.6); BAND NEUTROPHILS % (M) 19 % (0-4); BASOPHILS % (M) 1 % (0-2); GIANT THROMBO% (M) 1 % (0-0); LYMPHOCYTES #M 1.7 10^3/ul (0.8-2.9); LYMPHOCYTES % (M) 28 % (15-51); MICROCYTOSIS 1+ (0-0); MONOCYTE #M 0.1 10^3/ul (0.3-0.9); MONOCYTES % (M) 2 % (0-11); PLATELET ESTIMATE NORMAL; POIKILOCYTOSIS 1+ (0-0); SEG NEUT #M 3.1 10^3/ul (1.6-7.5); SEGMENTED NEUTROPHILS (M) % 50 % (39-77); SMUDGE%M 26 % (0-0)
[2019-05-23] MEDS: FAMOTIDINE 20 MG INJ IV ×2 (08:44→21:24)
[2019-05-23] MEDS ORDERED: CALCIUM GLUCONATE 10% 2 GM in DEXTROSE 5% 100 ML IVPB ×2 (09:00→19:00)
[2019-05-23] MEDS ORDERED: GLUCAGON 1 MG INJ IM (13:00)
[2019-05-23] MEDS ORDERED: GLUCOSE GEL 15 GRAM TUBE BUCCAL (13:00)
[2019-05-23] MEDS ORDERED: GLUCOSE GEL 15 GRAM TUBE PO ×2 (13:00)
[2019-05-23 17:44] LABS: ANION GAP 9 (5-13); BLOOD UREA NITROGEN 40 mg/dl (7-20); CARBON DIOXIDE 15 mmol/L (21-31); CHLORIDE 103 mmol/L (97-110); Estimated GFR 21 mL/min (>60); GLUCOSE 154 mg/dl (70-220); SODIUM 127 mmol/L (135-144)
[2019-05-23] MEDS: INSULIN ASPART [NOVOLOG] 3 ML PEN SC ×3 (17:49→21:00)
[2019-05-23 17:51] LABS: CALCIUM 4.8 mg/dl (8.4-10.2)
[2019-05-23] MEDS: METHADONE (1 MG/1 ML PO SYG) PO (21:23)
[2019-05-23] MEDS: INSULIN GLARGINE [LANTus] (100 UNITS/ML) SYG SC (21:36)
[2019-05-23] MEDS: MAGNESIUM HYDROXIDE 30ML CUP PO (21:43)
[2019-05-24] MEDS: GEMFIBROZIL 600 MG TAB PO ×3 (00:22→20:43)
[2019-05-24] MEDS: FISH OIL 1,000 MG CAP PO ×3 (00:22→20:43)
[2019-05-24] MEDS: SOD CHLORIDE 0.9% 1,000 ML IV ×3 (00:24→17:41)
[2019-05-24] MEDS: METHADONE (1 MG/1 ML PO SYG) PO ×6 (00:35→20:55)
[2019-05-24] MEDS: ACCU-CHEK XX (02:00)
[2019-05-24 02:51] LABS: AADO2 Arterial 99.2 mmHg (7.0-24.0); Allen Test ACCEPTAB; Arterial Base Excess -11.1 mmol/L (-3.0-3); Arterial Blood Gas Oxygen Sat 97.5 mmHG (95.0-98.0); Arterial COHb 2.2 % (0.0-3.0); Arterial Fraction of Oxyhgb 94.2 % (93.0-99.0); Arterial HCO3 14.5 mmol/L (22.0-26.0); Arterial MetHb 1.2 % (0.0-1.5); Arterial pCO2 31.3 mmhg (35-45); MODE NASAL CANNULA; Site Right Radial
[2019-05-24] MEDS ORDERED: LEVALBUTEROL (NEB) 1.25 MG/0.5 ML AMP (03:06)
[2019-05-24] MEDS: NA BICARBONATE 8.4% 50 ML SYG IV (03:06)
[2019-05-24] MEDS: IPRATROPIUM (NEB) 0.5 MG/2.5 ML AMP HHN (03:12)
[2019-05-24] MEDS: LEVALBUTEROL (NEB) 1.25 MG/0.5 ML AMP HHN (03:12)
[2019-05-24 05:46] LABS: ABNORMAL IP MESSAGE 1; HEMATOCRIT 25.8 % (42.0-52.0); HEMOGLOBIN 8.7 g/dl (14.0-18.0); MEAN CORPUSCULAR HEMOGLOBIN 28.4 pg (29.0-33.0); MEAN CORPUSCULAR HGB CONC 33.7 g/dl (32.0-37.0); MEAN CORPUSCULAR VOLUME 84.3 fl (82.0-101.0); MEAN PLATELET VOLUME 9.6 fl (7.4-10.4); PLATELET COUNT 141 10^3/UL (140-415); POSITIVE DIFF @See below; RED BLOOD COUNT 3.06 10^6/ul (4.70-6.10); RED CELL DISTRIBUTION WIDTH 13.2 % (11.5-14.5)
[2019-05-24 05:46] LABS: WHITE BLOOD COUNT 4.5 10^3/ul (4.8-10.8)
[2019-05-24 05:53] LABS: ADD MAN DIFF? YES
[2019-05-24 06:09] LABS: ANION GAP 14 (5-13); BLOOD UREA NITROGEN 40 mg/dl (7-20); CARBON DIOXIDE 18 mmol/L (21-31); CHLORIDE 102 mmol/L (97-110); CREATININE 2.84 mg/dl (0.61-1.24); Estimated GFR 24 mL/min (>60); GLUCOSE 153 mg/dl (70-220); POTASSIUM 4.3 mmol/L (3.5-5.1); SODIUM 134 mmol/L (135-144)
[2019-05-24 06:13] LABS: CALCIUM 5.6 mg/dl (8.4-10.2)
[2019-05-24] MEDS: INSULIN ASPART [NOVOLOG] 3 ML PEN SC ×6 (07:47→20:56)
[2019-05-24] MEDS: HYDROmorphONE 1 MG/ML SYG IV ×3 (08:17→18:49)
[2019-05-24] MEDS: LINAGLIPTIN 5 MG TABLET PO (08:21)
[2019-05-24] MEDS: FAMOTIDINE 20 MG INJ IV ×2 (08:21→20:43)
[2019-05-24] MEDS: CALCIUM GLUCONATE 10% 2 GM in DEXTROSE 5% 100 ML IVPB (08:50)
[2019-05-24 09:21] LABS: ANISOCYTOSIS 1+ (0-0); BAND NEUTROPHILS #M 1.7 10^3/ul (0.0-0.6); BAND NEUTROPHILS % (M) 39 % (0-4); EOSINOPHILS % (M) 3 % (0-7); GIANT THROMBO% (M) 1 % (0-0); LYMPHOCYTES #M 0.6 10^3/ul (0.8-2.9); LYMPHOCYTES % (M) 15 % (15-51); METAMYELOCYTES %M 1 % (0-0); MICROCYTOSIS 1+ (0-0); MONOCYTE #M 0.3 10^3/ul (0.3-0.9); MONOCYTES % (M) 8 % (0-11); PLATELET ESTIMATE NORMAL; POIKILOCYTOSIS 1+ (0-0); POLYCHROMASIA 3+ (0-0); SEG NEUT #M 1.6 10^3/ul (1.6-7.5); SEGMENTED NEUTROPHILS (M) % 34 % (39-77); SMUDGE%M 1 % (0-0)
[2019-05-24 10:14] LABS: AADO2 Arterial 88.3 mmHg (7.0-24.0); Allen Test ACCEPTAB; Arterial Base Excess -6.4 mmol/L (-3.0-3); Arterial Blood Gas Oxygen Sat 96.3 mmHG (95.0-98.0); Arterial COHb 2.6 % (0.0-3.0); Arterial Fraction of Oxyhgb 92.4 % (93.0-99.0); Arterial MetHb 1.4 % (0.0-1.5); Arterial pCO2 36.9 mmhg (35-45); MODE NASAL CANNULA; Site Right Radial
[2019-05-24] MEDS ORDERED: MEROPENEM 1 GM/50ML(PMX) 50 ML IVPB (10:30)
[2019-05-24 10:50] LABS: LACTATE DEHYDROGENASE 6378 IU/L (313-618)
[2019-05-24] MEDS: MEROPENEM 1 GM/50ML(PMX) 50 ML IVPB ×2 (14:18→21:05)
[2019-05-24 14:22] LABS: ADD MAN DIFF? NO
[2019-05-24 14:25] LABS: WHITE BLOOD COUNT 4.7 10^3/ul (4.8-10.8)
[2019-05-24 14:25] LABS: BASOPHILS % 0.4 % (0.0-2.0); EOSINOPHILS # 0.1 10^3/ul (0.0-0.5); EOSINOPHILS % 1.3 % (0.0-7.0); HEMATOCRIT 24.8 % (42.0-52.0); HEMOGLOBIN 8.4 g/dl (14.0-18.0); LYMPHOCYTES # 0.7 10^3/ul (0.8-2.9); LYMPHOCYTES % 14.8 % (15.0-51.0); MEAN CORPUSCULAR HEMOGLOBIN 28.7 pg (29.0-33.0); MEAN CORPUSCULAR HGB CONC 33.9 g/dl (32.0-37.0); MEAN CORPUSCULAR VOLUME 84.6 fl (82.0-101.0); MEAN PLATELET VOLUME 8.9 fl (7.4-10.4); MONOCYTE # 0.4 10^3/ul (0.3-0.9); MONOCYTES % 9.1 % (0.0-11.0); NEUTROPHIL # 3.5 10^3/ul (1.6-7.5); NEUTROPHILS % 73.6 % (39.0-77.0); PLATELET COUNT 143 10^3/UL (140-415); RED BLOOD COUNT 2.93 10^6/ul (4.70-6.10); RED CELL DISTRIBUTION WIDTH 13.3 % (11.5-14.5)
[2019-05-24 14:46] LABS: ALANINE AMINOTRANSFERASE 13 IU/L (13-69); ALBUMIN 3.4 g/dl (3.3-4.9); ALBUMIN/GLOBULIN RATIO 1.09; ALKALINE PHOSPHATASE 34 IU/L (42-121); ANION GAP 10 (5-13); ASPARTATE AMINO TRANSFERASE 86 IU/L (15-46); BILIRUBIN,INDIRECT 1.1 mg/dl (0-1.1); BILIRUBIN,TOTAL 1.9 mg/dl (0.2-1.3); BLOOD UREA NITROGEN 35 mg/dl (7-20); CALCIUM 6.2 mg/dl (8.4-10.2); CARBON DIOXIDE 21 mmol/L (21-31); CHLORIDE 104 mmol/L (97-110); Estimated GFR 29 mL/min (>60); GLUCOSE 95 mg/dl (70-220); POTASSIUM 4.3 mmol/L (3.5-5.1); SODIUM 135 mmol/L (135-144); TOTAL PROTEIN 6.5 g/dl (6.1-8.1)
[2019-05-24] MEDS: INSULIN GLARGINE [LANTus] (100 UNITS/ML) SYG SC (20:00)
[2019-05-24] MEDS: MUPIROCIN 2% 22 GM OINT TOP (20:44)
[2019-05-25] MEDS ORDERED: GUAIFENESIN 20 MG/ML 5ML CUP PO
[2019-05-25] MEDS: INSULIN ASPART [NOVOLOG] 3 ML PEN SC ×3 (01:00→09:00)
[2019-05-25] MEDS: METHADONE (1 MG/1 ML PO SYG) PO ×6 (01:00→20:42)
[2019-05-25] MEDS: HYDROmorphONE 1 MG/ML SYG IV ×4 (02:30→22:30)
[2019-05-25] MEDS: SOD CHLORIDE 0.9% 1,000 ML IV ×2 (04:53→15:06)
[2019-05-25 05:21] LABS: ADD MAN DIFF? NO
[2019-05-25 05:28] LABS: BASOPHILS % 0.7 % (0.0-2.0); EOSINOPHILS # 0.1 10^3/ul (0.0-0.5); EOSINOPHILS % 1.8 % (0.0-7.0); HEMATOCRIT 23.6 % (42.0-52.0); HEMOGLOBIN 7.8 g/dl (14.0-18.0); LYMPHOCYTES # 0.6 10^3/ul (0.8-2.9); LYMPHOCYTES % 13.3 % (15.0-51.0); MEAN CORPUSCULAR HEMOGLOBIN 28.4 pg (29.0-33.0); MEAN CORPUSCULAR HGB CONC 33.1 g/dl (32.0-37.0); MEAN CORPUSCULAR VOLUME 85.8 fl (82.0-101.0); MEAN PLATELET VOLUME 9.2 fl (7.4-10.4); MONOCYTE # 0.5 10^3/ul (0.3-0.9); MONOCYTES % 11.4 % (0.0-11.0); NEUTROPHIL # 3.2 10^3/ul (1.6-7.5); NEUTROPHILS % 70.8 % (39.0-77.0); PLATELET COUNT 144 10^3/UL (140-415); POSITIVE DIFF @See below; RED BLOOD COUNT 2.75 10^6/ul (4.70-6.10); RED CELL DISTRIBUTION WIDTH 13.6 % (11.5-14.5)
[2019-05-25 05:28] LABS: WHITE BLOOD COUNT 4.6 10^3/ul (4.8-10.8)
[2019-05-25 05:48] LABS: LIPASE 982 U/L (23-300)
[2019-05-25 05:50] LABS: MAGNESIUM 1.8 mg/dl (1.7-2.5)
[2019-05-25 05:50] LABS: PHOSPHORUS 2.8 mg/dl (2.5-4.9)
[2019-05-25 05:58] LABS: ALANINE AMINOTRANSFERASE 12 IU/L (13-69); ALBUMIN 3.5 g/dl (3.3-4.9); ALBUMIN/GLOBULIN RATIO 1.12; ALKALINE PHOSPHATASE 40 IU/L (42-121); ANION GAP 11 (5-13); ASPARTATE AMINO TRANSFERASE 81 IU/L (15-46); BILIRUBIN,INDIRECT 1.2 mg/dl (0-1.1); BLOOD UREA NITROGEN 25 mg/dl (7-20); CALCIUM 6.9 mg/dl (8.4-10.2); CARBON DIOXIDE 21 mmol/L (21-31); CHLORIDE 103 mmol/L (97-110); CREATININE 1.94 mg/dl (0.61-1.24); Estimated GFR 37 mL/min (>60); GLUCOSE 119 mg/dl (70-220); SODIUM 135 mmol/L (135-144); TOTAL PROTEIN 6.6 g/dl (6.1-8.1)
[2019-05-25] MEDS: MEROPENEM 1 GM/50ML(PMX) 50 ML IVPB (06:50)
[2019-05-25] MEDS: FISH OIL 1,000 MG CAP PO ×2 (08:50→20:43)
[2019-05-25] MEDS: MUPIROCIN 2% 22 GM OINT TOP ×2 (08:51→20:45)
[2019-05-25] MEDS: FAMOTIDINE 20 MG INJ IV ×2 (08:51→20:42)
[2019-05-25] MEDS: GEMFIBROZIL 600 MG TAB PO ×2 (08:51→20:43)
[2019-05-25 09:44] LABS: IRON 20 ug/dl (35-150)
[2019-05-25 09:53] LABS: % IRON SATURATION 9 % SAT (22-52); TOTAL IRON BINDING CAPACITY 233 ug/dl (241-421)
[2019-05-25] MEDS ORDERED: INSULIN ASPART [NOVOLOG] 3 ML PEN SC (11:00)
[2019-05-25] MEDS: Insulin NOVOLOG SS MILD Algorithm (SS with meals and bedtime) SC ×4 (11:00→20:44)
[2019-05-25] MEDS: SOD FERRIC GLUC COMPLX 125 MG in SOD CHLORIDE 0.9% 100 ML IVPB (16:01)
[2019-05-25 16:32] LABS: CREATININE, RANDOM URINE 237 mg/dL (20-320); MICROALBUMIN 30.3 mg/dL; MICROALBUMIN/CREATININE RATIO 128 (<30)
[2019-05-25] MEDS: INSULIN GLARGINE [LANTus] (100 UNITS/ML) SYG SC (20:58)
[2019-05-26] MEDS: METHADONE (1 MG/1 ML PO SYG) PO ×6 (01:42→21:56)
[2019-05-26] MEDS: HYDROmorphONE 1 MG/ML SYG IV ×4 (01:43→19:51)
[2019-05-26 06:11] LABS: ADD MAN DIFF? NO
[2019-05-26 06:21] LABS: WHITE BLOOD COUNT 5.4 10^3/ul (4.8-10.8)
[2019-05-26 06:21] LABS: BASOPHILS % 0.7 % (0.0-2.0); EOSINOPHILS # 0.1 10^3/ul (0.0-0.5); EOSINOPHILS % 2.4 % (0.0-7.0); HEMATOCRIT 22.9 % (42.0-52.0); HEMOGLOBIN 7.6 g/dl (14.0-18.0); LYMPHOCYTES # 0.7 10^3/ul (0.8-2.9); LYMPHOCYTES % 13.2 % (15.0-51.0); MEAN CORPUSCULAR HEMOGLOBIN 28.4 pg (29.0-33.0); MEAN CORPUSCULAR HGB CONC 33.2 g/dl (32.0-37.0); MEAN CORPUSCULAR VOLUME 85.4 fl (82.0-101.0); MEAN PLATELET VOLUME 9.2 fl (7.4-10.4); MONOCYTE # 0.6 10^3/ul (0.3-0.9); MONOCYTES % 10.4 % (0.0-11.0); NEUTROPHIL # 3.8 10^3/ul (1.6-7.5); NEUTROPHILS % 71.3 % (39.0-77.0); PLATELET COUNT 169 10^3/UL (140-415); POSITIVE DIFF @See below; RED BLOOD COUNT 2.68 10^6/ul (4.70-6.10); RED CELL DISTRIBUTION WIDTH 13.8 % (11.5-14.5)
[2019-05-26 06:35] LABS: PHOSPHORUS 3.1 mg/dl (2.5-4.9)
[2019-05-26 06:42] LABS: LIPASE 416 U/L (23-300)
[2019-05-26 06:57] LABS: ANION GAP 10 (5-13); BLOOD UREA NITROGEN 15 mg/dl (7-20); CALCIUM 8.2 mg/dl (8.4-10.2); CARBON DIOXIDE 24 mmol/L (21-31); CHLORIDE 102 mmol/L (97-110); CREATININE 1.42 mg/dl (0.61-1.24); Estimated GFR 53 mL/min (>60); GLUCOSE 117 mg/dl (70-220); POTASSIUM 4.3 mmol/L (3.5-5.1); SODIUM 136 mmol/L (135-144)
[2019-05-26] MEDS: Insulin NOVOLOG SS MILD Algorithm (SS with meals and bedtime) SC ×4 (07:25→22:07)
[2019-05-26] MEDS: MUPIROCIN 2% 22 GM OINT TOP ×2 (08:25→21:56)
[2019-05-26] MEDS: GEMFIBROZIL 600 MG TAB PO ×2 (08:25→21:51)
[2019-05-26] MEDS: AMLODIPINE 2.5 MG TAB PO (08:25)
[2019-05-26] MEDS: FAMOTIDINE 20 MG INJ IV ×2 (08:26→21:51)
[2019-05-26] MEDS: FISH OIL 1,000 MG CAP PO ×2 (08:26→21:51)
[2019-05-26] MEDS: SOD CHLORIDE 0.9% 1,000 ML IV ×3 (08:30→20:00)
[2019-05-26 09:26] LABS: BAND NEUTROPHILS #M 0.9 10^3/ul (0.0-0.6); BAND NEUTROPHILS % (M) 17 % (0-4); BURR CELLS 1+ (0-0); EOSINOPHILS % (M) 5 % (0-7); ERYTHROBLAST% (NRBC) (M) 1 % (0-0); HYPOCHROMASIA 1+ (0-0); LYMPHOCYTES #M 1.2 10^3/ul (0.8-2.9); LYMPHOCYTES % (M) 24 % (15-51); MONOCYTE #M 0.5 10^3/ul (0.3-0.9); MONOCYTES % (M) 11 % (0-11); PLATELET ESTIMATE NORMAL; POIKILOCYTOSIS 1+ (0-0); POLYCHROMASIA 1+ (0-0); PROMYELOCYTES % (M) 1 % (0-0); SEG NEUT #M 2.3 10^3/ul (1.6-7.5); SEGMENTED NEUTROPHILS (M) % 42 % (39-77); SMUDGE%M 38 % (0-0)
[2019-05-26 09:34] LABS: CHOL/HDL RATIO 8.5 RATIO; HDL CHOLESTEROL 19 mg/dl (27-67); LDL CHOLESTEROL,CALCULATED 67 mg/dl; TRIGLYCERIDES 386 mg/dl (0-149)
[2019-05-26 09:34] LABS: CHOLESTEROL 163 mg/dl (100-200)
[2019-05-26] MEDS: SOD FERRIC GLUC COMPLX 125 MG in SOD CHLORIDE 0.9% 100 ML IVPB (12:56)
[2019-05-26 13:57] LABS: ADD UMIC YES; UR ASCORBIC ACID NEGATIVE (NEGATIVE); UR BILIRUBIN (Dip) NEGATIVE (NEGATIVE); UR BLOOD (Dip) 2+ mg/dL (NEGATIVE); UR CLARITY CLEAR (CLEAR); UR COLOR YELLOW (YELLOW); UR GLUCOSE (Dip) 1+ mg/dL (NEGATIVE); UR KETONES (Dip) 1+ mg/dL (NEGATIVE); UR LEUKOCYTE ESTERASE (Dip) NEGATIVE Leu/ul (NEGATIVE); UR NITRITE (Dip) NEGATIVE (NEGATIVE); UR RBC 0 /HPF (0-5); UR TOTAL PROTEIN (Dip) 1+ mg/dl (NEGATIVE); UR UROBILINOGEN (Dip) NEGATIVE (NEGATIVE); UR WBC 1 /HPF (0-5)
[2019-05-26] MEDS: INSULIN GLARGINE [LANTus] (100 UNITS/ML) SYG SC (19:56)
[2019-05-27] MEDS: METHADONE (1 MG/1 ML PO SYG) PO ×6 (01:00→20:45)
[2019-05-27] MEDS: HYDROmorphONE 1 MG/ML SYG IV ×3 (02:41→18:31)
[2019-05-27] MEDS: SOD CHLORIDE 0.9% 1,000 ML IV ×2 (05:55→15:39)
[2019-05-27 06:51] LABS: ADD MAN DIFF? NO
[2019-05-27 06:59] LABS: WHITE BLOOD COUNT 8.1 10^3/ul (4.8-10.8)
[2019-05-27 07:00] LABS: BASOPHILS % 0.5 % (0.0-2.0); EOSINOPHILS # 0.1 10^3/ul (0.0-0.5); EOSINOPHILS % 1.6 % (0.0-7.0); HEMATOCRIT 21.3 % (42.0-52.0); LYMPHOCYTES # 0.8 10^3/ul (0.8-2.9); LYMPHOCYTES % 9.7 % (15.0-51.0); MEAN CORPUSCULAR HEMOGLOBIN 28.3 pg (29.0-33.0); MEAN CORPUSCULAR HGB CONC 32.9 g/dl (32.0-37.0); MEAN CORPUSCULAR VOLUME 86.2 fl (82.0-101.0); MEAN PLATELET VOLUME 9.1 fl (7.4-10.4); MONOCYTE # 0.6 10^3/ul (0.3-0.9); MONOCYTES % 7.7 % (0.0-11.0); NEUTROPHIL # 6.2 10^3/ul (1.6-7.5); NEUTROPHILS % 76.4 % (39.0-77.0); PLATELET COUNT 178 10^3/UL (140-415); RED BLOOD COUNT 2.47 10^6/ul (4.70-6.10); RED CELL DISTRIBUTION WIDTH 13.8 % (11.5-14.5)
[2019-05-27] MEDS: Insulin NOVOLOG SS MILD Algorithm (SS with meals and bedtime) SC ×4 (07:25→20:45)
[2019-05-27 07:28] LABS: ALANINE AMINOTRANSFERASE 18 IU/L (13-69); ALBUMIN 3.2 g/dl (3.3-4.9); ALBUMIN/GLOBULIN RATIO 1.03; ALKALINE PHOSPHATASE 114 IU/L (42-121); ANION GAP 11 (5-13); ASPARTATE AMINO TRANSFERASE 43 IU/L (15-46); BILIRUBIN,INDIRECT 0.8 mg/dl (0-1.1); BILIRUBIN,TOTAL 1.6 mg/dl (0.2-1.3); BLOOD UREA NITROGEN 12 mg/dl (7-20); CALCIUM 8.7 mg/dl (8.4-10.2); CARBON DIOXIDE 24 mmol/L (21-31); CHLORIDE 101 mmol/L (97-110); CREATININE 1.28 mg/dl (0.61-1.24); Estimated GFR > 60 mL/min (>60); GLUCOSE 159 mg/dl (70-220); POTASSIUM 3.8 mmol/L (3.5-5.1); SODIUM 136 mmol/L (135-144); TOTAL PROTEIN 6.3 g/dl (6.1-8.1)
[2019-05-27 07:35] LABS: MAGNESIUM 1.8 mg/dl (1.7-2.5)
[2019-05-27 07:35] LABS: LIPASE 343 U/L (23-300); PHOSPHORUS 3.9 mg/dl (2.5-4.9)
[2019-05-27] MEDS: FISH OIL 1,000 MG CAP PO ×2 (08:14→20:44)
[2019-05-27] MEDS: GEMFIBROZIL 600 MG TAB PO ×2 (08:15→20:44)
[2019-05-27] MEDS: AMLODIPINE 2.5 MG TAB PO (08:15)
[2019-05-27] MEDS: FAMOTIDINE 20 MG INJ IV ×2 (08:16→20:44)
[2019-05-27] MEDS: MUPIROCIN 2% 22 GM OINT TOP ×2 (08:16→20:45)
[2019-05-27] MEDS: SOD FERRIC GLUC COMPLX 125 MG in SOD CHLORIDE 0.9% 100 ML IVPB (13:15)
[2019-05-27] MEDS: INSULIN ASPART [NOVOLOG] 3 ML PEN SC (18:41)
[2019-05-27] MEDS: INSULIN GLARGINE [LANTus] (100 UNITS/ML) SYG SC (19:50)
[2019-05-28] MEDS: DIPHENHYDRAMINE 50 MG INJ IV
[2019-05-28] MEDS: SOD CHLORIDE 0.9% 1,000 ML IV (00:11)
[2019-05-28] MEDS: HYDROmorphONE 1 MG/ML SYG IV ×8 (00:11→23:07)
[2019-05-28] MEDS: METHADONE (1 MG/1 ML PO SYG) PO ×3 (01:00→09:52)
[2019-05-28] MEDS: POLYETHYLENE GLYCOL 17 GM PACKET PO ×2 (03:26→08:54)
[2019-05-28] MEDS: DOCUSATE SODIUM 100 MG CAP PO ×3 (03:26→20:08)
[2019-05-28] MEDS ORDERED: METHADONE (1 MG/ML 5 ML PO UD SYG) (04:52)
[2019-05-28 06:38] LABS: ADD MAN DIFF? NO
[2019-05-28 06:43] LABS: ABNORMAL IP MESSAGE 1; BASOPHILS % 0.3 % (0.0-2.0); EOSINOPHILS # 0.1 10^3/ul (0.0-0.5); EOSINOPHILS % 1.5 % (0.0-7.0); HEMATOCRIT 20.3 % (42.0-52.0); LYMPHOCYTES # 0.9 10^3/ul (0.8-2.9); LYMPHOCYTES % 9.1 % (15.0-51.0); MEAN CORPUSCULAR HEMOGLOBIN 28.1 pg (29.0-33.0); MEAN CORPUSCULAR HGB CONC 33.5 g/dl (32.0-37.0); MEAN CORPUSCULAR VOLUME 83.9 fl (82.0-101.0); MEAN PLATELET VOLUME 9.2 fl (7.4-10.4); MONOCYTE # 0.6 10^3/ul (0.3-0.9); MONOCYTES % 6.2 % (0.0-11.0); NEUTROPHIL # 7.7 10^3/ul (1.6-7.5); NEUTROPHILS % 79.6 % (39.0-77.0); PLATELET COUNT 198 10^3/UL (140-415); POSITIVE DIFF @See below; RED BLOOD COUNT 2.42 10^6/ul (4.70-6.10); RED CELL DISTRIBUTION WIDTH 13.6 % (11.5-14.5)
[2019-05-28 06:43] LABS: WHITE BLOOD COUNT 9.6 10^3/ul (4.8-10.8)
[2019-05-28 07:08] LABS: HEMOGLOBIN 6.8 g/dl (14.0-18.0)
[2019-05-28 07:35] LABS: PHOSPHORUS 4.7 mg/dl (2.5-4.9)
[2019-05-28 07:35] LABS: MAGNESIUM 1.7 mg/dl (1.7-2.5)
[2019-05-28 07:38] LABS: LIPASE 345 U/L (23-300)
[2019-05-28 07:46] LABS: ANION GAP 8 (5-13); BLOOD UREA NITROGEN 11 mg/dl (7-20); CALCIUM 8.5 mg/dl (8.4-10.2); CARBON DIOXIDE 24 mmol/L (21-31); CHLORIDE 104 mmol/L (97-110); CREATININE 1.21 mg/dl (0.61-1.24); Estimated GFR > 60 mL/min (>60); GLUCOSE 116 mg/dl (70-220); POTASSIUM 3.6 mmol/L (3.5-5.1); SODIUM 136 mmol/L (135-144)
[2019-05-28] MEDS: Insulin NOVOLOG SS MILD Algorithm (SS with meals and bedtime) SC ×4 (08:21→21:00)
[2019-05-28] MEDS: INSULIN ASPART [NOVOLOG] 3 ML PEN SC ×4 (08:22→17:35)
[2019-05-28] MEDS: FISH OIL 1,000 MG CAP PO ×2 (08:53→20:08)
[2019-05-28] MEDS: FAMOTIDINE 20 MG INJ IV (08:53)
[2019-05-28] MEDS: AMLODIPINE 2.5 MG TAB PO (08:54)
[2019-05-28] MEDS: MUPIROCIN 2% 22 GM OINT TOP ×3 (09:00→20:09)
[2019-05-28] MEDS: GEMFIBROZIL 600 MG TAB PO ×3 (09:00→20:08)
[2019-05-28] MEDS: SOD CHLORIDE 0.9% 250 ML IV* (11:00)
[2019-05-28 11:01] LABS: IMMEDIATE SPIN CROSSMATCH 1 1
[2019-05-28 12:33] LABS: ANISOCYTOSIS 1+ (0-0); BAND NEUTROPHILS #M 0.4 10^3/ul (0.0-0.6); BAND NEUTROPHILS % (M) 5 % (0-4); EOSINOPHILS % (M) 1 % (0-7); HYPOCHROMASIA 1+ (0-0); LYMPHOCYTES #M 0.9 10^3/ul (0.8-2.9); LYMPHOCYTES % (M) 10 % (15-51); MONOCYTE #M 0.2 10^3/ul (0.3-0.9); MONOCYTES % (M) 3 % (0-11); PLATELET ESTIMATE NORMAL; POIKILOCYTOSIS 1+ (0-0); POLYCHROMASIA 3+ (0-0); SEG NEUT #M 7.8 10^3/ul (1.6-7.5); SEGMENTED NEUTROPHILS (M) % 81 % (39-77); SMUDGE%M 5 % (0-0)
[2019-05-28] MEDS: LACTULOSE 30ML CUP PO (14:22)
[2019-05-28] MEDS: SOD FERRIC GLUC COMPLX 125 MG in SOD CHLORIDE 0.9% 100 ML IVPB (16:44)
[2019-05-28 16:49] LABS: HEMATOCRIT 22.7 % (42.0-52.0); HEMOGLOBIN 7.6 g/dl (14.0-18.0)
[2019-05-28] MEDS: NA PHOSPHATE/BIPHOS 133 ML ENEMA PR (17:34)
[2019-05-28] MEDS ORDERED: FAMOTIDINE 20 MG TAB (19:44)
[2019-05-28] MEDS ORDERED: METOPROLOL 25 MG TAB (19:45)
[2019-05-28] MEDS: INSULIN GLARGINE [LANTus] (100 UNITS/ML) SYG SC (20:07)
[2019-05-28] MEDS: FAMOTIDINE 20 MG TAB PO (20:09)
[2019-05-28] MEDS: METOPROLOL 25 MG TAB PO (20:09)
[2019-05-28 20:32] LABS: OCCULT BLOOD STOOL NEGATIVE (NEGATIVE)
[2019-05-29] MEDS: HYDROmorphONE 1 MG/ML SYG IV ×4 (02:11→12:13)
[2019-05-29 06:32] LABS: ADD MAN DIFF? NO
[2019-05-29 06:37] LABS: BASOPHILS % 0.3 % (0.0-2.0); EOSINOPHILS # 0.1 10^3/ul (0.0-0.5); EOSINOPHILS % 1.4 % (0.0-7.0); HEMATOCRIT 23.5 % (42.0-52.0); HEMOGLOBIN 7.7 g/dl (14.0-18.0); LYMPHOCYTES # 0.8 10^3/ul (0.8-2.9); MEAN CORPUSCULAR HEMOGLOBIN 27.9 pg (29.0-33.0); MEAN CORPUSCULAR HGB CONC 32.8 g/dl (32.0-37.0); MEAN CORPUSCULAR VOLUME 85.1 fl (82.0-101.0); MEAN PLATELET VOLUME 9.2 fl (7.4-10.4); MONOCYTE # 0.5 10^3/ul (0.3-0.9); MONOCYTES % 5.4 % (0.0-11.0); PLATELET COUNT 231 10^3/UL (140-415); RED BLOOD COUNT 2.76 10^6/ul (4.70-6.10); RED CELL DISTRIBUTION WIDTH 13.6 % (11.5-14.5)
[2019-05-29 06:37] LABS: WHITE BLOOD COUNT 9.9 10^3/ul (4.8-10.8)
[2019-05-29 06:56] LABS: PHOSPHORUS 4.3 mg/dl (2.5-4.9)
[2019-05-29 06:56] LABS: MAGNESIUM 1.7 mg/dl (1.7-2.5)
[2019-05-29 06:57] LABS: ALANINE AMINOTRANSFERASE 17 IU/L (13-69); ALBUMIN 3.2 g/dl (3.3-4.9); ALBUMIN/GLOBULIN RATIO 0.96; ALKALINE PHOSPHATASE 139 IU/L (42-121); ANION GAP 11 (5-13); ASPARTATE AMINO TRANSFERASE 35 IU/L (15-46); BILIRUBIN,INDIRECT 0.8 mg/dl (0-1.1); BILIRUBIN,TOTAL 0.8 mg/dl (0.2-1.3); BLOOD UREA NITROGEN 10 mg/dl (7-20); CALCIUM 8.9 mg/dl (8.4-10.2); CARBON DIOXIDE 26 mmol/L (21-31); CHLORIDE 101 mmol/L (97-110); CREATININE 1.26 mg/dl (0.61-1.24); Estimated GFR > 60 mL/min (>60); GLUCOSE 140 mg/dl (70-220); POTASSIUM 3.9 mmol/L (3.5-5.1); SODIUM 138 mmol/L (135-144); TOTAL PROTEIN 6.5 g/dl (6.1-8.1)
[2019-05-29] MEDS: Insulin NOVOLOG SS MILD Algorithm (SS with meals and bedtime) SC ×2 (07:47→11:30)
[2019-05-29] MEDS: INSULIN ASPART [NOVOLOG] 3 ML PEN SC ×2 (07:49→12:06)
[2019-05-29] MEDS: GEMFIBROZIL 600 MG TAB PO (08:38)
[2019-05-29] MEDS: FAMOTIDINE 20 MG TAB PO (08:38)
[2019-05-29] MEDS: MUPIROCIN 2% 22 GM OINT TOP (08:38)
[2019-05-29] MEDS: METOPROLOL 25 MG TAB PO (08:38)
[2019-05-29] MEDS: FISH OIL 1,000 MG CAP PO (08:38)
[2019-05-29] MEDS: DOCUSATE SODIUM 100 MG CAP PO (08:52)
[2019-05-29] MEDS: POLYETHYLENE GLYCOL 17 GM PACKET PO (08:52)
== END 2019-05-29 13:32 | disposition home or self-care (01) | DRG 438 ==
LOC: ICU 05-22 13:16 → TEL 05-25 17:10 → 2NE 14:37 → PP2 05-27 23:57
PROVIDERS: Internal Medicine
DX: K85.90 Acute pancreatitis without necrosis or infection, unspecified (principal); N17.0 Acute kidney failure with tubular necrosis; E87.1 Hypo-osmolality and hyponatremia; E87.2 Acidosis; E83.42 Hypomagnesemia; E83.39 Other disorders of phosphorus metabolism; E11.9 Type 2 diabetes mellitus without complications; D64.9 Anemia, unspecified; E87.5 Hyperkalemia; E83.51 Hypocalcemia; E78.1 Pure hyperglyceridemia; F10.20 Alcohol dependence, uncomplicated; I10 Essential (primary) hypertension; E80.6 Other disorders of bilirubin metabolism; E66.9 Obesity, unspecified; Z68.32 Body mass index [BMI] 32.0-32.9, adult; Z79.4 Long term (current) use of insulin; Z91.14 Patient's other noncompliance with medication regimen
CPT/HCPCS: 36430; 36600; 70360; 74018; 74176; 76775; 80048; 80053; 80061; 81001; 81003; 82010; 82043; 82270; 82330; 82607; 82728; 82746; 82803; 82962; 83036; 83540; 83605; 83615; 83690; 83735; 84100; 84155; 84300; 84436; 84443; 84479; 85014; 85018; 85025; 86850; 86900; 86901; 86920; 87040-91; 87081; 87086; 94640; 94664

== ENCOUNTER 2019-07-21 08:37 | Emergency (ER) | payer OTHER ==
[2019-07-21 12:32] LABS: ADD MAN DIFF? NO
[2019-07-21 12:38] LABS: BASOPHILS % 0.6 % (0.0-2.0); EOSINOPHILS # 0.1 10^3/ul (0.0-0.5); EOSINOPHILS % 1.1 % (0.0-7.0); HEMATOCRIT 38.2 % (42.0-52.0); LYMPHOCYTES # 1.7 10^3/ul (0.8-2.9); LYMPHOCYTES % 31.4 % (15.0-51.0); MEAN CORPUSCULAR HEMOGLOBIN 27.4 pg (29.0-33.0); MEAN CORPUSCULAR VOLUME 80.6 fl (82.0-101.0); MEAN PLATELET VOLUME 8.3 fl (7.4-10.4); MONOCYTE # 0.3 10^3/ul (0.3-0.9); MONOCYTES % 6.2 % (0.0-11.0); NEUTROPHIL # 3.2 10^3/ul (1.6-7.5); NEUTROPHILS % 60.3 % (39.0-77.0); PLATELET COUNT 222 10^3/UL (140-415); RED BLOOD COUNT 4.74 10^6/ul (4.70-6.10); RED CELL DISTRIBUTION WIDTH 12.1 % (11.5-14.5)
[2019-07-21 12:38] LABS: WHITE BLOOD COUNT 5.3 10^3/ul (4.8-10.8)
[2019-07-21] MEDS: BELLADONNA/PHENOBARBITAL TAB PO (12:39)
[2019-07-21] MEDS: LIDOCAINE/MYLANTA 40 ML BTL PO (12:39)
[2019-07-21] MEDS: LORAZEPAM 1 MG TAB PO (12:39)
[2019-07-21] MEDS: FAMOTIDINE 20 MG TAB PO (12:39)
[2019-07-21] MEDS: ONDANSETRON 4 MG INJ IV (12:39)
[2019-07-21] MEDS: LACTATED RINGER'S 1,000 ML IV (12:40)
[2019-07-21 12:57] LABS: ALANINE AMINOTRANSFERASE 38 IU/L (13-69); ALBUMIN 4.5 g/dl (3.3-4.9); ALBUMIN/GLOBULIN RATIO 1.07; ALKALINE PHOSPHATASE 69 IU/L (42-121); ANION GAP 8 (5-13); ASPARTATE AMINO TRANSFERASE 44 IU/L (15-46); BILIRUBIN,INDIRECT 0.9 mg/dl (0-1.1); BILIRUBIN,TOTAL 0.9 mg/dl (0.2-1.3); BLOOD UREA NITROGEN 9 mg/dl (7-20); CALCIUM 9.8 mg/dl (8.4-10.2); CARBON DIOXIDE 28 mmol/L (21-31); CHLORIDE 102 mmol/L (97-110); CREATININE 0.73 mg/dl (0.61-1.24); Estimated GFR > 60 mL/min (>60); GLUCOSE 104 mg/dl (70-220); LIPASE 191 U/L (23-300); POTASSIUM 4.3 mmol/L (3.5-5.1); SODIUM 138 mmol/L (135-144); TOTAL PROTEIN 8.7 g/dl (6.1-8.1)
== END 2019-07-21 14:45 | disposition home or self-care (01) ==
LOC: E/R 14:45
DX: I10 Essential (primary) hypertension (principal); E11.9 Type 2 diabetes mellitus without complications; E66.9 Obesity, unspecified; F10.230 Alcohol dependence with withdrawal, uncomplicated; Z79.4 Long term (current) use of insulin; Z68.29 Body mass index [BMI] 29.0-29.9, adult
CPT/HCPCS: 36415; 80053; 83690; 85025; 96374; 99284-25

== ENCOUNTER 2019-08-28 11:37 | Emergency (ER) | payer OTHER ==
[2019-08-28] MEDS: ONDANSETRON 4 MG INJ IV (13:51)
[2019-08-28] MEDS: LACTATED RINGER'S 1,000 ML IV (13:51)
[2019-08-28] MEDS: FAMOTIDINE 20 MG TAB PO (13:51)
[2019-08-28] MEDS: LORAZEPAM 1 MG TAB PO (13:51)
[2019-08-28] MEDS: LIDOCAINE/MYLANTA 40 ML BTL PO (13:51)
[2019-08-28] MEDS: BELLADONNA/PHENOBARBITAL TAB PO (13:51)
== END 2019-08-28 15:04 | disposition home or self-care (01) ==
LOC: E/R 11:37
DX: F10.230 Alcohol dependence with withdrawal, uncomplicated (principal); F15.10 Other stimulant abuse, uncomplicated; I10 Essential (primary) hypertension; E11.9 Type 2 diabetes mellitus without complications; E66.9 Obesity, unspecified; Z79.4 Long term (current) use of insulin
CPT/HCPCS: 80053; 83690; 84484; 85025; 93005; 96374; 99284-25